=== PATIENT | female | born 1995 ===

== ENCOUNTER 2023-07-05 10:05 | Outpatient (CLI) | payer MEDICAID, SELFPAY ==
--- NOTE | 2023-07-05 10:15 | US_ITS ---
Patient: ALPHONSE COLON Facility:?[facility] Patient ID:?[id number] Site Patient ID:?[id number]. Site :?[id number] Study:?US-OB Pelvis TV OB<14wks-07/05/2023 11:22:34 AM Ordering Physician:Valerie Montaño Final Report: INDICATION: Check viability and dates TECHNIQUE: Transvaginal scanning was performed to better evaluate the IUP and adnexa. Ovarian blood flow was evaluated with color-flow and pulsed Doppler. COMPARISON: None FINDINGS: There is a living IUP with gestational age of 7 weeks 6 days by LMP and 7 weeks 3 days by today`s crown-rump length. EDC based on today`s crown-rump length is 02/18/2024. The embryonic heart rate is measured at 154 beats per minute. The placenta is not yet formed. No subchorionic hemorrhage is evident. A simple right ovarian cyst measuring 5.5 x 5.5 x 5.0 cm is demonstrated. The right ovary measures 6.2 x 5.6 x 5.5 cm and the left 2.5 x 2.4 x 1.6 cm. Ovarian blood flow is demonstrated with color-flow and pulsed Doppler. No adnexal mass is demonstrated. There is a trace of free fluid in the cul-de-sac. IMPRESSION: 1. Living IUP with gestational age of 7 weeks 3 days by today`s crown-rump length and EDC of 02/18/2024. 2. No complication evident. 3. Simple 5.5 cm right ovarian cyst. Dictated by Moises Means MD @ 07/06/2023 8:03:43 AM Signed by:?Moises Means MD @07/06/2023 8:03:43 AM (Electronic Signature)
== END 2023-07-05 10:06 | disposition home or self-care (01) ==
LOC: US 10:05
PROVIDERS: PCP Family Medicine; Visit Provider Advanced Practice Midwife
DX: Z34.91 Encounter for supervision of normal pregnancy, unspecified, first trimester (principal); O34.81 Maternal care for other abnormalities of pelvic organs, first trimester; N83.291 Other ovarian cyst, right side; Z3A.01 Less than 8 weeks gestation of pregnancy
CPT/HCPCS: 76817; 86592; 86703; 86704; 86706; 86762; 86787; 86803; 86850; 86900; 86901; 87086; 87340

== ENCOUNTER 2023-07-05 11:37 | Outpatient (CLI) | payer MEDICAID, SELFPAY | END 2023-07-05 11:38 | disposition home or self-care (01) | PROVIDERS: PCP Family Medicine; Visit Provider Advanced Practice Midwife | DX: Z34.91 Encounter for supervision of normal pregnancy, unspecified, first trimester (principal) | CPT/HCPCS: 86592; 86703; 86704; 86706; 86762; 86787; 86803; 86850; 86900; 86901; 87086; 87340 ==

== ENCOUNTER 2023-07-14 14:16 | Emergency (ER) | payer MEDICAID, SELFPAY ==
[2023-07-14] VITALS (10 sets, daily range): BP systolic 118–121; BP diastolic 67–75; PULSE 79–94; RESP 20; TEMP 36.9; O2SAT 97–100; BMI 39.1
--- NOTE | 2023-07-14 14:41 | ED_ITS ---
HPI - General Adult General Chief complaint: Nausea/Vomiting Stated complaint: 9 weeks -cant stop vomiting Time Seen by Provider: 07/14/23 14:18 History of Present Illness HPI narrative: Patient is a 27-year-old female who is about 9 weeks estimated gestational age . She reports that she has had nausea vomiting and diarrhea. She denies fever, denies COVID symptoms or cough. Denies chest pain. She has had no vaginal bleeding or complaints. She has had morning sickness with this , this seems worse. She has had similar symptoms however with this but not to this degree. She has history of mood disorder, anxiety, depression. She is concerned as she is unable to take fluids fully over last 24 hours or eat well. Related Data Home Medications Medication Instructions Recorded Confirmed docosahexaenoic acid 200 mg mg PO 07/05/23 07/05/23 capsule ( DHA) Allergies Allergy/AdvReac Type Severity Reaction Status Date / Time No Known Drug Allergies Allergy Verified 07/14/23 14:25 Review of Systems Status of ROS: Reports: 6 or more systems reviewed and unremarkable except as noted in History and below PFSH PFS Medical History History of vaginal delivery (10/31/18) History of chlamydia infection (~2014) ?Z86.19 - Personal history of other infectious and parasitic diseases (ICD- 10) Surgical History [place] teeth removed ?K08.409 - Partial loss of teeth, unspecified cause, unspecified class (ICD- 10) Family History Father Substance abuse Diabetes Mother Mental disorder Maternal Grandfather Diabetes Paternal Grandfather Diabetes Grandmother Ovarian cancer Diabetes Sister Diabetes Other High blood pressure Social History Narrative: SOCIAL Education: high school Work: manager language at [employer] Partner: Joey - partner Owns [employer] (his first child) Lives with: daughter, plans to move in together with partner in the near future Pets: none Abuse: Denies past/present Special Diet: Denies Ok with a blood transfusion: yes Culture or temple beliefs: denies RISK FACTORS Exercise Times/wk: encouraged Depression/Anxiety: history of anxiety and depression, not on medications and denies current concerns ANIKET: 3 PHQ 9: 4 Seat Belt Use: Routinely Smoking: Denies present, past vaping Alcohol/day: Denies while Caffeine: occasional soda Drug Use: Denies present, THC occasionally Chicken Pox: immunized MRSA: Denies What is your current living situation?: I presently have a place to live Problems where you live: no known problems In the past 12 months, utilities in danger of being shut off: no In past 12 months, lack of transportation kept you from medical appts, meetings, work, or getting things needed for daily living: no In the past 12 mos, have been you worried that your food would run out before you had money to buy more?: never true In the past 12 mos, the food you bought just didn't last and you didn't have money to buy more?: never true Smoking Status: Never smoker Do you use any of these nicotine containing products: None How often do you have a drink containing alcohol: never AUDIT-C Alcohol total score: 0 Non-prescribed substance use: denies use How often does anyone, including family, friends and others, physically hurt you : never How often does anyone, including family, friends and others, insult or talk down to you: never How often does anyone, including family, friends and others, threaten you with harm: never How often does anyone, including family, friends and others, scream or curse at you: never Little interest or pleasure in doing things: not at all Feeling down, depressed, or hopeless: not at all Exam Narrative: Exam Narrative: Objective: Patient's vital signs are within normal limits She is alert orient x3 no distress, it appears noncyanotic, breathing normally, speaking normally. HEENT is unremarkable Abdomen obese, nontender, no rebound or masses. Extremities normal no edema. Const: Vital Signs, click to edit/add: Vital Signs - 24 hr 07/14/23 14:25 07/14/23 14:38 07/14/23 14:45 Temperature 98.4 F Pulse Rate 86 89 Pulse Rate [Pulse Oximeter] 79 Respiratory Rate 20 Blood Pressure Blood Pressure [Ri ght Upper Arm] 118/75 Pulse Oximetry 98 97 98 Oxygen Delivery Me thod Room Air 07/14/23 15:00 07/14/23 15:01 Temperature Pulse Rate 86 88 Pulse Rate [Pulse Oximeter] Respiratory Rate Blood Pressure 121/70 Blood Pressure [Ri ght Upper Arm] Pulse Oximetry 98 98 Oxygen Delivery Me thod Course Vital Signs Vital signs: Initial Vital Signs Temperature 98.4 F 07/14/23 14:25 Temperature Source Temporal Artery Scan 07/14/23 14:25 Pulse Rate 79 07/14/23 14:25 Respiratory Rate 20 07/14/23 14:25 Blood Pressure 118/75 07/14/23 14:25 Blood Pressure Mean 89 07/14/23 14:25 Blood Pressure Position High-Fowlers 07/14/23 14:25 Pulse Oximetry 98 07/14/23 14:25 Oxygen Delivery Method Room Air 07/14/23 14:25 Vital Signs Temperature 98.4 F 07/14/23 14:25 Pulse Rate 79 07/14/23 14:25 Respiratory Rate 20 07/14/23 14:25 Blood Pressure 118/75 07/14/23 14:25 Pulse Oximetry 98 07/14/23 14:25 Oxygen Delivery Method Room Air 07/14/23 14:25 Temperature 98.4 F 07/14/23 14:25 Pulse Rate 88 07/14/23 15:01 Respiratory Rate 20 07/14/23 14:25 Blood Pressure 121/70 07/14/23 15:01 Pulse Oximetry 98 07/14/23 15:01 Oxygen Delivery Method Room Air 07/14/23 14:25 Medications Administered Medications: Discontinued Medications Generic Name Dose Route Start Last Admin Trade Name Freq PRN Reason Stop Dose Admin Sodium Chloride 1,000 mls @ 6,000 mls/hr 07/14/23 14:45 07/14/23 14:55 0.9 % Sodium Chloride 1000 Ml IV 07/14/23 14:54 2,000 mls/hr .Q10M KAMALA Administration Ondansetron HCl 4 mg 07/14/23 14:40 07/14/23 14:52 Ondansetron 2 Mg/Ml Inj IVP 07/14/23 14:41 4 mg ONCE ONE Administration Medical Decision Making MDM Narrative Medical decision making narrative: 27-year-old female with about 9 weeks estimated gestational age , [facility], with nausea vomiting diarrhea. Certainly could be food toxicity as she was contemplating, certainly could be hyperemesis as well. She appears clinically nontoxic, all check a heme 4 basic 7, give her Zofran 4 mg IV and 1 L normal saline. At that point for labs are reassuring I think we can lower to go home rest light activity light fluid and then update med dixon tomorrow. Patient's labs are reassuring, got fluid and Zofran. She be allowed to go home. Will give her something to eat before she goes. Recheck with her manager exchange tomorrow update your return to ER as needed. Lab Data Labs: Lab Results 07/14/23 Range/Units 14:52 WBC 7.93 (4.50-11.00) K/uL RBC 4.90 (4.00-5.20) m/uL Hgb 14.4 (12.0-16.0) gm/dL Hct 42.4 (33.0-51.0) % MCV 87 (80-100) fL MCH 29 (26-34) pg MCHC 34 (32-36) gm/dL RDW Coeff of Ginger 12.3 (11.5-15.5) % Plt Count 315 (140-440) K/uL Neut % (Auto) 82.9 H (42.0-72.0) % Lymph % (Auto) 10.1 L (20-44) % Wilkinson % (Auto) 4.7 (0.0-11.0) % Eos % (Auto) 1.3 (0.0-7.0) % Baso % (Auto) 0.1 (0.0-3.0) % Neut # (Auto) 6.60 (1.7-7.0) K/uL Lymph # (Auto) 0.80 L (0.90-2.90) K/uL Wilkinson # (Auto) 0.40 (0.00-0.90) K/UL Eos # (Auto) 0.10 (0.00-0.50) K/uL Baso # (Auto) 0.01 (0.00-0.30) K/uL Abs Immat Gran (auto) 0.07 (0.00-0.30) K/uL Imm/Tot Granulo (auto) 0.9 % Sodium 137 (135-149) mmol/L Potassium 3.7 (3.6-5.1) mmol/L Chloride 104 (96-114) mmol/L Carbon Dioxide 24 (20-32) mmol/L Anion Gap 9 (7-15) mEq/L BUN 7 (5-24) mg/dL Creatinine 0.5 (0.5-1.5) mg/dL Estimated Creat Clear 120.32 Estimated GFR 131 ml/min Glucose 92 (60-115) mg/dL Calcium 9.6 (8.4-10.6) mg/dL Discharge Plan Discharge Clinical Impression: Nausea vomiting and diarrhea, Hyperemesis gravidarum, Patient Disposition: Home w/ Parent or Adult Condition: Improved Additional Instructions: Light activity, fluids, bland diet, continue home medications, update midwives tomorrow with symptoms. Return to ED sooner problems or concerns. Activity Level: Light activity Discharge Diet: Full Liquid Diet Detail: Advance diet as tolerated Prescriptions: No Action DHA 200 mg capsule PO Follow Up/Referrals: Lexx Pérez MD [Primary Care Provider] - Stand Alone Forms: [facility] Tech Info Instructions
[2023-07-14] MEDS: ONDANSETRON 2 MG/ML inj 4 MG IVP (14:52)
[2023-07-14] MEDS: 0.9 % SODIUM CHLORIDE 1000 ml 1,000 ML 2000 ML IV (14:55)
[2023-07-14 15:03] LABS: Basophils Absolute Auto 0.01 K/uL (0.00-0.30); Basophils Percent Auto 0.1 % (0.0-3.0); Eosinophils Percent Auto 1.3 % (0.0-7.0); Hematocrit 42.4 % (33.0-51.0); Hemoglobin* 14.4 gm/dL (12.0-16.0); Immature Granulocytes Abs Auto 0.07 K/uL (0.00-0.30); Immature Granulocytes Pct Auto 0.9 %; Lymphocytes Percent Auto 10.1 % (20-44); Mean Corpuscular HGB Conc 34 gm/dL (32-36); Mean Corpuscular Hemoglobin 29 pg (26-34); Mean Corpuscular Volume 87 fL (80-100); Monocytes Percent Auto 4.7 % (0.0-11.0); Neutrophils Percent Auto 82.9 % (42.0-72.0); Platelet Count* 315 K/uL (140-440); RDW Coefficient of Variation % 12.3 % (11.5-15.5); White Blood Count* 7.93 K/uL (4.50-11.00)
[2023-07-14 15:12] LABS: Slide Review Reflex No
[2023-07-14 15:15] LABS: Chloride* 104 mmol/L (96-114); Potassium* 3.7 mmol/L (3.6-5.1); Sodium* 137 mmol/L (135-149)
[2023-07-14 15:18] LABS: Anion Gap 9 mEq/L (7-15); Blood Urea Nitrogen* 7 mg/dL (5-24); Calcium* 9.6 mg/dL (8.4-10.6); Carbon Dioxide* 24 mmol/L (20-32); Creatinine* 0.5 mg/dL (0.5-1.5); Est. Creatinine Clearance* 120.32; Estimated Glomerular Filt Rate 131 ml/min; Glucose* 92 mg/dL (60-115)
== END 2023-07-14 15:50 | disposition home or self-care (01) ==
PROVIDERS: Emergency Provider Family Medicine; PCP Family Medicine
DX: O21.0 Mild hyperemesis gravidarum (principal); Z3A.09 9 weeks gestation of pregnancy
CPT/HCPCS: 36415; 80048; 85025; 96374; 99283; 99284; J2405; J7030

== ENCOUNTER 2023-08-02 10:31 | Outpatient (CLI) | payer MEDICAID, SELFPAY | END 2023-08-02 10:32 | disposition home or self-care (01) | LOC: NFLDREF 10:32 | PROVIDERS: PCP Family Medicine; Visit Provider Advanced Practice Midwife | DX: F12.10 Cannabis abuse, uncomplicated (principal) | CPT/HCPCS: 80306 ==

== ENCOUNTER 2023-09-27 11:53 | Outpatient (CLI) | payer MEDICAID, SELFPAY ==
--- NOTE | 2023-09-27 12:15 | CRLHL7_ITS ---
For Patients: As a result of the 21st Century Cures Act, medical imaging exams and procedure reports are released immediately into your electronic medical record. You may view this report before your referring provider. If you have questions, please contact your health care provider. OB ULTRASOUND CLINICAL HISTORY: anatomy survey. COMPARISON: 07/05/2023. MATA by LMP: 02/15/2024. GA: 19 w, 6 d. FINDINGS: position: Variable. Cervix: Visualized. Technique: Transabdominal. Length of closed cervix: 3.6 cm. Placenta/cord: Posterior. Technique: Transabdominal. Placenta tip to internal OS: 4.9 cm. Umbilical Cord: 3-vessel cord. Placenta insertion: Central. Amniotic Fluid: 3.2 cm SDP SURVEY: Observed Structures Cerebellum: Yes. 2 cm; 20 w 2 d. Cisterna Magna: Yes. 2.5 mm. Nuchal Fold: Yes. 3.1 mm. Lateral Ventricle: Yes. 6.1 mm. CSP: Yes. Midline Falx: Yes. Choroid Plexus: Yes. Spine: Yes. Stomach: Yes. Abd Cord Insertion: Yes. Urinary Bladder: Yes. Kidneys: Yes. Diaphragm: Yes. Nose/lips: Yes. Orbital view: Yes. Profile: Yes. Upper Extremities: Yes. Lower Extremities: Yes. Hands: Yes. Feet: Yes. BPD: 3.9 cm. 17 w 6 d, <3%. HC: 16.2 cm. 19 w 0 d, 10%. AC: 14.7 cm. 20 w 0 d, 49%. FL: 3.2 cm. 19 w 6 d, 44%. FL/AC: 21.63%. HC/AC Ratio: 1.10. Heart rate: 150 beats per minute. age by this US: 19 w 3 d. MATA by this US: 02/18/2024. EFW: 312 g. Weight: 11 oz. Percentile by MATA: 40%. IMPRESSION: 1. Estimated weight is at the 40th percentile. 2. BPD less than 3rd percentile, head circumference 10th percentile. 3. Four chamber heart and outflow tracts were not well seen due to positioning. Recommend follow-up images. 4. Otherwise, normal anatomic survey. 5. Right ovarian cyst has resolved. Stefano Rasmussen M.D. Body/Diagnostic Radiologist [email or web address] CRISTIANE/elvis leal/Dictated by: Stefano Rasmussen MD @ 09/28/2023 3:35:00 PM (Electronically Signed)
== END 2023-09-27 11:54 | disposition home or self-care (01) ==
LOC: US 11:55
PROVIDERS: Visit Provider Advanced Practice Midwife
DX: Z36.89 Encounter for other specified antenatal screening (principal); Z34.82 Encounter for supervision of other normal pregnancy, second trimester; Z3A.19 19 weeks gestation of pregnancy
CPT/HCPCS: 76805

== ENCOUNTER 2023-11-22 13:57 | Outpatient (CLI) | payer MEDICAID, SELFPAY | END 2023-11-22 13:58 | disposition home or self-care (01) | LOC: NFLDREF 13:59 | PROVIDERS: Visit Provider Midwife | DX: Z36.89 Encounter for other specified antenatal screening (principal); O99.212 Obesity complicating pregnancy, second trimester; Z3A.27 27 weeks gestation of pregnancy; O99.342 Other mental disorders complicating pregnancy, second trimester; F41.9 Anxiety disorder, unspecified; F32.A Depression, unspecified; R73.9 Hyperglycemia, unspecified | CPT/HCPCS: 86592 ==

== ENCOUNTER 2023-11-23 07:54 | Outpatient (CLI) | payer MEDICAID, SELFPAY | END 2023-11-23 07:55 | disposition home or self-care (01) | LOC: NFLDREF 11-29 00:15 | PROVIDERS: Visit Provider Midwife | DX: Z36.89 Encounter for other specified antenatal screening (principal); O99.212 Obesity complicating pregnancy, second trimester; O99.810 Abnormal glucose complicating pregnancy; R73.9 Hyperglycemia, unspecified; Z3A.27 27 weeks gestation of pregnancy | CPT/HCPCS: 82951; 82952 ==

== ENCOUNTER 2023-12-20 08:55 | Outpatient (CLI) | payer MEDICAID, SELFPAY ==
--- NOTE | 2023-12-20 09:15 | CRLHL7_ITS ---
For Patients: As a result of the Century Cures Act, medical imaging exams and procedure reports are released immediately into your electronic medical record. You may view this report before your referring provider. If you have questions, please contact your health care provider. INDICATION: Growth for obesity COMPARISON: 09/27/2023 TECHNIQUE: Real time herndon scale imaging of the fetus was performed. FINDINGS: Sonographic imaging demonstrates a single living intrauterine gestation. Fetus demonstrates a regular cardiac rate of 149 beats per minute. Fetus has a vertex position. The placenta lies posteriorly. Amniotic fluid volume appears normal and there is a single deepest vertical pocket: 5.8 cm. The estimated weight is 1615gm which lies at the 10th %. On the prior OB ultrasound exam dated 09/27/2023 the estimated weight was at the 40th%. BPD 8th percentile. HC 18th percentile. AC 19th percentile. FL is 5th percentile. The HC/AC ratio measures 1.09 range (0.96-1.17). IMPRESSION: Sonographic gestational age 30 weeks 6 days and sonographic due date of 02/22/2024. Sonographic age 1 week behind the clinical age. Estimated weight 10th percentile. Abdominal circumference 19th percentile. FL 5th percentile. Dictated by Kristian Moya MD @ 12/20/2023 12:20:19 PM (Electronically Signed)
== END 2023-12-20 08:56 | disposition home or self-care (01) ==
LOC: US 08:57
PROVIDERS: Visit Provider Midwife
DX: O99.210 Obesity complicating pregnancy, unspecified trimester (principal); Z3A.30 30 weeks gestation of pregnancy
CPT/HCPCS: 76816

== ENCOUNTER 2023-12-29 14:50 | Outpatient (CLI) | payer MEDICAID, SELFPAY ==
[2023-12-29] VITALS (13 sets, daily range): BP systolic 114; BP diastolic 57; PULSE 71–86; O2SAT 97–99
[2023-12-29 15:41] LABS: Bilirubin Urine Negative (Negative); Blood Urine Negative (Negative); Color Urine Yellow (Yellow); Glucose Urine Negative (Negative); Ketones Urine Negative (Negative); Leukocyte Esterase Urine Negative (Negative); Nitrite Urine Negative (Negative); Protein Urine Negative (Negative); Specific Gravity Urine >= 1.030 (1.000-1.030); Urobilinogen Urine 0.2 (0.2-1.0)
[2023-12-29 15:47] LABS: Appearance Urine Slightly Cloudy (Clear)
[2023-12-29 15:48] LABS: Amorphous Sediment Urine Few; Bacteria Urine Moderate; RBC Urine 0-2 (0-2); Squamous Epithelial Cell Urine Moderate (None-Few); WBC Urine 0-2 (0-5)
[2023-12-29 15:49] LABS: Clue Cells No Clue Cells Seen (None Seen); Trichomonas No Trichomonas Seen (None Seen); Yeast No Yeast Seen (None Seen)
--- NOTE | 2023-12-29 17:34 | PC.OBNST ---
NST Note NST Note Start: 12/29/23 15:01 Freq: ONCE Status: Active Protocol: Document 12/29/23 17:16 JG (Rec: 12/29/23 17:22 JRAziza [id number]) NST Note 2 Para (# of births) 1 EDC 02/15/24 Gestational Age In Weeks & Days 33 Weeks & 1 Days Patient Presented with Complaint(s) of Contractions/cramping Reactive Yes Appropriate for Gestational Age Yes RN Gloria Limon RN Date 12/29/23 Reactive Yes Appropriate for Gestational Age Yes SHANNAN De Santiago RN Date 12/29/23 OB NST charge Yes Complete NST Note via Write Note Yes The provider's electronic signature indicates the NST is reactive/appropriate for gestational age. *Note to provider: If an addendum is required, open the patient's chart and click on the note under the Nurse/Allied Health tab.
== END 2023-12-29 16:53 | disposition home or self-care (01) ==
LOC: OB OUT 14:52 → OB 14:55
PROVIDERS: Visit Provider Obstetrics & Gynecology
DX: O47.03 False labor before 37 completed weeks of gestation, third trimester (principal); Z3A.33 33 weeks gestation of pregnancy
CPT/HCPCS: 59025; 81001; 81003; 87086; 87210; G0463

== ENCOUNTER 2024-01-17 09:09 | Outpatient (CLI) | payer MEDICAID, SELFPAY ==
--- NOTE | 2024-01-17 09:15 | CRLHL7_ITS ---
For Patients: As a result of the Century Cures Act, medical imaging exams and procedure reports are released immediately into your electronic medical record. You may view this report before your referring provider. If you have questions, please contact your health care provider. HISTORY: anatomic survey. COMPARISON: Ob ultrasound from 10/05/2023 TECHNIQUE: Ultrasound examination of the is performed with transabdominal technique. FINDINGS: A single intrauterine gestation is seen in cephalic presentation with regular cardiac activity at 157 beats per minute. The placenta is posterior and is free of the cervical os. The placental grade is 2 and the amniotic fluid volume is normal. Single deepest vertical pocket: 5.2 cm. BPD: 8.3 cm 33 weeks 3 days HC: 30.5 cm 34 weeks 0 days, less than the 3rd percentile AC: 31.0 cm 35 weeks 0 days. Thirty-third percentile FL: 6.5 cm 33 weeks 3 days, 3rd percentile The estimated age by ultrasound is 34 weeks 0 days, with an estimated date of delivery of 02/18/2024. This represents progressive decreased rate of growth compared to the clinical age of 35 weeks 6 days. The discrepancy of 1 weeks 6 days is increased compared to the reported one-week discrepancy on the previous ultrasound. However, there has been appropriate interval growth compared with the previous ultrasound. The ultrasound ratios are normal. The estimated weight of 2400 grams is at the 14th percentile based on the clinical dates. IMPRESSION: 1. Single intrauterine gestation in cephalic presentation with regular cardiac activity. 2. Estimated gestational age is 34 weeks 0 days. 3. There has been appropriate interval growth compared to the previous OB ultrasound. 4. Estimated weight of 2400 grams is at the 14th percentile based on the clinical dates, previously 10th percentile. 5. Head circumference less than the 3rd percentile. Dictated by Xavier Kenney MD @ 01/17/2024 12:08:28 PM (Electronically Signed)
== END 2024-01-17 09:10 | disposition home or self-care (01) ==
LOC: US 09:09
PROVIDERS: Visit Provider Advanced Practice Midwife
DX: Z34.93 Encounter for supervision of normal pregnancy, unspecified, third trimester (principal); Z3A.33 33 weeks gestation of pregnancy
CPT/HCPCS: 76816; 80306; 87081; 87653

== ENCOUNTER 2024-01-24 15:16 | Outpatient (CLI) | payer MEDICAID, SELFPAY ==
[2024-01-24] VITALS (7 sets, daily range): BP systolic 124; BP diastolic 68; PULSE 79–91; RESP 16; TEMP 36.5; O2SAT 96–98
--- NOTE | 2024-01-24 15:52 | CRLHL7_ITS ---
For Patients: As a result of the Cures Act, medical imaging exams and procedure reports are released immediately into your electronic medical record. You may view this report before your referring provider. If you have questions, please contact your health care provider. Indication: Non-reactive NST ESTIMATED DATE OF DELIVERY (MATA): 02/15/2024. Technique: Real-time sonographic images of the pelvis were obtained transabdominally using grayscale, color, and Doppler imaging. Comparison: 01/17/2024. Findings: Placenta: Posterior. No previa. : Number: Single. Position: Cephalic. Cardiac activity: 155 BPM. Amniotic fluid: Single deepest pocket measuring 4.6 cm. GROWTH PARAMETER SIZE (cm) ESTIMATED AGE Biparietal diameter: 8.6 34 weeks 4 days Head circumference: 32.1 36 weeks 1 day Abdominal circumference: 31.9 35 weeks 6 days Femur length: 6.6 33 weeks 6 days Average Ultrasound Age (AUA) based on this exam: 35 weeks 1 day. MATA based on the AUA from this exam: 02/27/2024. Estimated weight (EFW): 2619 gm +/-393 gm. This corresponds to the 16 percentile based on the established MATA. HC/AC= 1.0 FL/AC= 20.6% Biophysical profile: Breathin/2 Movement: 2/2 Tone: 2/2 Fluid volume: 2/2 Total: 10/20 Impression: 1. Single live intrauterine measuring 35 weeks 1 day by ultrasound. 2. Amniotic fluid single deepest pocket measuring 4.6 centimeter. 3. BPP 10/20. Dictated by Chi Oneal MD @ 01/24/2024 5:58:20 PM (Electronically Signed)
--- NOTE | 2024-01-24 16:24 | P.OBLDTN_ITS ---
OB - Triage/Final Diagnosis Visit Information Narrative: The patient is a 28 year old 2 para 1 at 36 6/7 weeks gestation by LMP, who presents with confirmed by first tri US. She was seen in clinic for routine surveillance for elevated BMI. NST was equivocal with only 10 x10 bpm accelerations. Only one 15x15 accel over 1.5 hours despite position changes, juice. Sent to Triage for surveillance and BPP. H&P completed 01/24/2024 by Teri KELLER # GBS+ # Occasional THC use. Aware she needs negative UDS for waterbirth. THC positive at 12 weeks 2nd tri-declined due to scheduling with child 3rd tri- needs for waterbirth- negative 01/16 # Hx anxiety and depression. Denies current concerns. # Obesity. BMI 39.3 at NOB. Early gct: declines [facility] recommends growth US at 32 weeks: EFW 10.4%ile, AC 19%ile, follow-up growth US in 4 weeks ordered Follow up EFW 13%, Consider weekly BPP/NST starting at 37 weeks, planning weekly NST, Growth and BPP at 39 weeks # BPD <3%ile, RESOLVED HC 10%ile, [facility] referral placed Inadequate cardiac views also [facility] 10/05/2023: BPD not of concern, no abnormal findings on US. Recommend growth US at 32 weeks and weekly testing starting at 37 weeks based on BMI # EFW 10.4%ile follow-up growth in 4 weeks (36 weeks) EFW 13.5% at 36 wks follow up Growth at 39 weeks with BPP needs pap PP. COVID: declined Flu: declined TDAP: 12/06/2023 RSV: 32 wk Mental Health 12/20/2023 ASSESSMENT:?? 28 at 36 6/7 weeks gestation?? complicated by:??obesity, anxiety and depression, equivocal surveillance NST equivocal, BPP 10/20 ?? PLAN:?? 1.Reviewed signs and symtpoms to report. 2. to call in the morning to schedule NST and visit for Wednesday this week 3. Pt agrees with plan and has no further questions at this time Evaluation Vital signs: Vital Signs - 24 hr 01/24/24 15:27 01/24/24 15:32 01/24/24 15:36 Temperature Pulse Rate 88 Respiratory Rate Blood Pressure 124/68 Pulse Oximetry 98 98 01/24/24 15:37 01/24/24 15:37 01/24/24 15:42 Temperature 97.7 F Pulse Rate Respiratory Rate 16 Blood Pressure Pulse Oximetry 96 97 01/24/24 15:47 Temperature Pulse Rate Respiratory Rate Blood Pressure Pulse Oximetry 97 Comments: Vitals Reviewed Constitutional:? Alert and oriented x3 HEENT:? Normocephalic, atraumatic Neck:? Supple Lungs:? Clear to auscultation bilaterally Heart:? Regular rate and rhythm, no murmur, rub or gallop Abdomen:? Soft, nontender, and gravid. Vertex by Ankit's Extremities:? No edema or erythema BPP 10/20 NST: 145 bpm/moderate variability with periods of decreased/accelerations not present/decelerations absent/irreg, rare contractions Final Diagnosis (1) : Status: Acute (2) Obesity (BMI 30-39.9): Status: Acute (3) Anxiety: Status: Chronic (4) Depression: Status: Chronic (5) Abnormal heart rate or rhythm (FHR): Status: Acute Problem details: equivocal NST 01/24/24
--- NOTE | 2024-01-24 17:25 | PC.OBNST ---
NST Note NST Note Start: 01/24/24 15:19 Freq: ONCE Status: Active Protocol: Document 01/24/24 15:19 [facility] (Rec: 01/24/24 17:24 [facility] Desktop) NST Note 2 Para (# of births) 1 EDC 02/15/24 Gestational Age In Weeks & Days 36 Weeks & 6 Days Patient Presented with Complaint(s) of Other Other Complaints non reactive FHR tracing in clinic Reactive Yes Appropriate for Gestational Age Yes SHANNAN Rutherford RN Date 01/24/24 Reactive Yes Appropriate for Gestational Age Yes SHANNAN Bravo CNM Date 01/24/24 OB NST charge Yes Complete NST Note via Write Note Yes The provider's electronic signature indicates the NST is reactive/appropriate for gestational age. *Note to provider: If an addendum is required, open the patient's chart and click on the note under the Nurse/Allied Health tab.
== END 2024-01-24 17:17 | disposition home or self-care (01) ==
LOC: OB OUT 15:17 → OB 15:18
PROVIDERS: Visit Provider Midwife
DX: Z34.93 Encounter for supervision of normal pregnancy, unspecified, third trimester (principal); Z3A.36 36 weeks gestation of pregnancy; R73.9 Hyperglycemia, unspecified
CPT/HCPCS: 59025; 76816; 76819; G0463

== ENCOUNTER 2024-01-28 11:17 | Inpatient (IN) | payer MEDICAID, SELFPAY ==
[2024-01-28] VITALS (8 sets, daily range): BP systolic 103–121; BP diastolic 57–65; PULSE 75–93; RESP 16; TEMP 36.4–36.7; O2SAT 97–98; BMI 37.4
--- NOTE | 2024-01-28 10:06 | CRLHL7_ITS ---
For Patients: As a result of the Cures Act, medical imaging exams and procedure reports are released immediately into your electronic medical record. You may view this report before your referring provider. If you have questions, please contact your health care provider. Indication: non reactive NST MATA: 02/15/2024. Technique: Real-time sonographic images of the pelvis were obtained transabdominally using grayscale, color, and Doppler imaging. Comparison: 01/24/2024. Findings: A single intrauterine is present in cephalic position. Cardiac activity in the fetus is demonstrated at 137 BPM. Placenta: Posterior. No previa or abruption. Amniotic Fluid: Single deepest pocket measures 3.8 centimeter. Biophysical profile: Breathin/2 Movement: 2/2 Tone: 2/2 Fluid volume: 2/2 Total: 10/20 Impression: 1. Single living intrauterine gestation in cephalic presentation, with heartrate 137 BPM. 2. Posterior placenta without previa or abruption. 3. Amniotic fluid with single deepest pocket measuring 3.8 centimeter. 4. BPP 10/20. Dictated by Chi Oneal MD @ 01/28/2024 11:14:36 AM (Electronically Signed)
--- NOTE | 2024-01-28 10:49 | P.OBHP_ITS ---
OB - H&P: HPI Labor/Induction History of Present Illness Date Seen: 01/28/24 Chief Complaint: Stephanie is a 36 year old 2 para 1 at 37.3 weeks gestation by LMP, who presents with non-reassuring tracing in clinic. Chief complaint: maternity Narrative: Stephanie Miller is a 28 year old female at 37 3/7 weeks gestation. She was seen in clinic today for NST for BMI. It was non-reactive but we were not able to get her for an Ultrasound until mid morning. She was sent here for extended monitoring. Initially, the tracing was non-reactive, recommended BPP to decided route of delivery but will proceed with IOL today. BPP was 8/8, with a final score of 8/10. She had a previous non-reactive tracing on Wednesday with a BPP of 8/8 at that time as well. Discussed findings with Dr. Espinoza who agrees with recommendation of IOL. Patients has been complicated pre- BMI of 39, occasional THC use, and hx of anxiety/depression. Recommended testing was performed based on [facility] recommendation of Growth US at 32 weeks where EFW was 10.4%ile, previously 40%ile on 20 week anatomy followed by [facility] EFW of 20% with Level II for follow-up on cardiac views not seen on anatomy scan. She was then recommended to have a 36 week growth to trend EFW due to significant change. The EFW at 36 weeks was 14%ile. She started testing at 36 5/7 weeks due to scheduling, on 01/23. Her NST at this time was non-reactive after 40 minute in clinic. She was then sent for additional monitoring as they were not able to get her in for a BPP right away. BPP was performed while she was in triage with a score of 8/10. She was discharged home with plan to return today for NST in clinic. Ultrasound: 1st Trimester US: 07/05/2023 IMPRESSION: 1. Living IUP with gestational age of 7 weeks 3 days by today`s crown-rump length and EDC of 02/18/2024. 2. No complication evident. 3. Simple 5.5 cm right ovarian cyst. Dictated by Moises Means MD @ 07/06/2023 8:03:43 AM Anatomy US: 09/23/2023 IMPRESSION: 1. Estimated weight is at the 40th percentile. 2. BPD less than 3rd percentile, head circumference 10th percentile. 3. Four chamber heart and outflow tracts were not well seen due to positioning. Recommend follow-up images. 4. Otherwise, normal anatomic survey. 5. Right ovarian cyst has resolved. Percentile by MATA: 40%. Stefano Rasmussen M.D. [facility] 10/05/2023? Follow-up for incomplete anatomy with BPD <3% on outside US.? SIUP at 21 weeks gestation. No anomalies identified. EFW consistent with gestational age, 20%ile. Normal amniotic fluid. Cervix appeared long and closed. Based on pre- BMI of 39, recommended growth at 32 weeks and weekly testing starting at 37 weeks.? Follow-up US: 12/20/2023?32 week Growth US IMPRESSION:? Sonographic gestational age 30 weeks 6 days and sonographic due date of 02/22/2024. Sonographic age 1 week behind the clinical age.? Estimated weight 10th percentile. Abdominal circumference 19th percentile. FL 5th percentile.? Dictated by Kristian Moya MD @ 12/20/2023 12:20:19 PM? ? 01/17/2024?36 week Growth US IMPRESSION:? 1. Single intrauterine gestation in cephalic presentation with regular ? cardiac activity. ? 2. Estimated gestational age is 34 weeks 0 days.? 3. There has been appropriate interval growth compared to the previous OB ultrasound. ? 4. Estimated weight of 2400 grams is at the 14th percentile based on the clinical dates, previously 10th percentile. ? 5. Head circumference less than the 3rd percentile.? Dictated by Xavier Kenney MD @ 01/17/2024 12:08:28 PM? ? 01/23 Non-reactive NST in clinic? IMPRESSION:? 1. Single live intrauterine measuring 35 weeks 1 day by ? ultrasound.? 2. Amniotic fluid single deepest pocket measuring 4.6 centimeter. ? 3. BPP 10/20.? Dictated by Chi Oneal MD @ 01/24/2024 5:58:20 PM? Specific Issues/Plans Partner- Joey (his 1st child) H&P completed 01/24/2024 by Teri KELLER # GBS+, antibiotics recommended in labor # Occasional THC use. Aware she needs negative UDS for waterbirth. THC positive at 12 weeks 2nd tri-declined due to scheduling with child 3rd tri- needs for waterbirth- negative 01/16 # Hx anxiety and depression. Denies current concerns. # Obesity. BMI 39.3 at NOB. Early gct: declines [facility] recommends growth US at 32 weeks: EFW 10.4%ile, AC 19%ile, follow-up growth US in 4 weeks ordered 36 week growth: EFW 14% 37 week growth: Incidently done with BPP, 16% Consider weekly BPP/NST starting at 37 weeks, planning weekly NST, Growth and BPP at 39 weeks # BPD <3%ile, RESOLVED HC 10%ile, [facility] referral placed Inadequate cardiac views also [facility] 10/05/2023: BPD not of concern, no abnormal findings on US. Recommend growth US at 32 weeks and weekly testing starting at 37 weeks based on BMI # EFW 10.4%ile at 32 weeks follow-up growth in 4 weeks (36 weeks): 14 Ultrasounds: 1st Trimester US: 07/05/2023 IMPRESSION: 1. Living IUP with gestational age of 7 weeks 3 days by today`s crown-rump length and EDC of 02/18/2024. 2. No complication evident. 3. Simple 5.5 cm right ovarian cyst. Dictated by Moises Means MD @ 07/06/2023 8:03:43 AM Anatomy US: 09/23/2023 IMPRESSION: 1. Estimated weight is at the 40th percentile. 2. BPD less than 3rd percentile, head circumference 10th percentile. 3. Four chamber heart and outflow tracts were not well seen due to positioning. Recommend follow-up images. 4. Otherwise, normal anatomic survey. 5. Right ovarian cyst has resolved. Percentile by MATA: 40%. Stefano Rasmussen M.D. [facility] 10/05/2023? Follow-up for incomplete anatomy with BPD <3% on outside US.? SIUP at 21 weeks gestation. No anomalies identified. EFW consistent with gestational age, 20%ile. Normal amniotic fluid. Cervix appeared long and closed. Based on pre- BMI of 39, recommended growth at 32 weeks and weekly testing starting at 37 weeks.? Follow-up US: 12/20/2023?32 week Growth US IMPRESSION:? Sonographic gestational age 30 weeks 6 days and sonographic due date of 02/22/2024. Sonographic age 1 week behind the clinical age.? Estimated weight 10th percentile. Abdominal circumference 19th percentile. FL 5th percentile.? Dictated by Kristian Moya MD @ 12/20/2023 12:20:19 PM? ? 01/17/2024?36 week Growth US IMPRESSION:? 1. Single intrauterine gestation in cephalic presentation with regular cardiac activity. ? 2. Estimated gestational age is 34 weeks 0 days.? 3. There has been appropriate interval growth compared to the previous OB ultrasound. ? 4. Estimated weight of 2400 grams is at the 14th percentile based on the clinical dates, previously 10th percentile. ? 5. Head circumference less than the 3rd percentile.? Dictated by Xavier Kenney MD @ 01/17/2024 12:08:28 PM? ? 01/23 Non-reactive NST in clinic? IMPRESSION:? 1. Single live intrauterine measuring 35 weeks 1 day by ? ultrasound.? 2. Amniotic fluid single deepest pocket measuring 4.6 centimeter. ? 3. BPP 10/20.? Dictated by Chi Oneal MD @ 01/24/2024 5:58:20 PM? needs pap PP. COVID: declined Flu: declined TDAP: 12/06/2023 RSV: declines 32 wk Mental Health 12/20/2023 PHQ-9: ANIKET-7: History of Present Dating criteria: based on LMP care: good care Review of Systems Status of ROS: Reports: 10 or more systems reviewed and unremarkable except as noted in History and below Meds Home Medications and Allergies Home Medications ?Medication ?Instructions ?Recorded ?Confirmed ?Type ascorbic acid (vitamin C) 500 mg 500 mg PO DAILY 08/02/23 01/28/24 History capsule Allergies Allergy/AdvReac Type Severity Reaction Status Date / Time No Known Drug Allergies Allergy Verified 01/28/24 08:32 OB - H&P: Exam Physical Exam: Vital signs: Pulse BP Pulse Ox 88 103/63 98 01/28/24 10:21 01/28/24 10:21 01/28/24 10:22 Narrative: Vitals Reviewed Constitutional:? Alert and oriented x3 HEENT:? Normocephalic, atraumatic Neck:? Supple Lungs:? Clear to auscultation bilaterally Heart:? Regular rate and rhythm, no murmur, rub or gallop Abdomen:? Soft, nontender, and gravid. Vertex by Ankit's, confirmed with cervical exam. Extremities:? No edema or erythema Cervix: 0.5 cm/-2 station/vertex, soft/anterior NST: 155 bpm/moderate variability, periods of minimal/10x10 accelerations/no decelerations/no notable contractions Constitutional: Constitutional: no acute distress OB - Problem Based A/P Additional Plan (1) Group B Streptococcus carrier, antepartum: Status: Acute (2) Abnormal heart rate or rhythm (FHR): Status: Acute (3) Encounter for induction of labor: Status: Acute (4) Mild tetrahydrocannabinol (THC) abuse: Problem details: occasional use, pt reports not using since before 12 wk visit Negative UDS at 36 weeks Status: Acute (5) Mood disorder: Problem details: Mood lability diagnosed at [facility] 2016. Status: Chronic (6) Anxiety: Status: Chronic (7) Depression: Status: Chronic Plan ASSESSMENT:? 28yo at 37 2/7 weeks gestation? complicated by:?Occasional THC use, Hx anxiety and depression. Denies current concerns, Obesity. prepregnancy BMI 39.3, EFW 10.4%ile at 32 weeks, most recent EFW 16% Labor type: Induced labor? Category 1 FHR pattern.?? Labor complicated by: Non-reactive NST with BPP 10/20 for total of 10/22? GBS Positive? ? PLAN:? 1. Routine intrapartum cares as ordered. Discussed concerns with status and reassurance provided by BPP. Recommended IOL which she agrees. Reviewed options for IOL including cervidil, cook catheter, pitocin and AROM. Her cervix is closed, best option at this time is cervidil. She agrees with plan. She is not interested in a cook catheter if she can avoid it. She would be open to pitocin and AROM if needed. 2. Monitoring per policy, continuous? 3. Planning unmedicated . Desires water . Consent signed. Hep C negative. Candidate for analgesia of choice.?? 4. Patient encouraged to reposition and ambulate to promote physiologic labor and .? 5. GBS prophylaxis initiated for GBS positive status. Will treat with antibiotics per protocol. 6. Dr. Espinoza is aware of patient and agrees with plan. 7. Anticipate ? Delivery/Labor/Induction Plan Plan: induction Induction method: Cervidil
[2024-01-28 12:32] LABS: Amphetamine Screen Urine Negative (Negative); Barbiturate Screen Urine Negative (Negative); Benzodiazepines Screen Urine Negative (Negative); Cannabinoid Screen Urine Negative (Negative); Cocaine Screen Urine Negative (Negative); Methadone Screen Urine Negative (Negative); Methamphetamines Screen Urine Negative (Negative); Opiate Screen Urine Negative (Negative); Oxycodone Screen Urine Negative (Negative); Phencyclidine Screen Urine Negative (Negative); Tricyclic Antidepressant Urine Negative (Negative)
[2024-01-28 13:26] LABS: Basophils Absolute Auto 0.03 K/uL (0.00-0.30); Basophils Percent Auto 0.4 % (0.0-3.0); Eosinophils Absolute Auto 0.08 K/uL (0.00-0.50); Eosinophils Percent Auto 1.1 % (0.0-7.0); Hemoglobin* 12.6 gm/dL (12.0-16.0); Immature Granulocytes Abs Auto 0.01 K/uL (0.00-0.30); Immature Granulocytes Pct Auto 0.1 %; Lymphocytes Absolute Auto 1.71 K/uL (0.90-2.90); Lymphocytes Percent Auto 24.2 % (20-44); Mean Corpuscular HGB Conc 33 gm/dL (32-36); Mean Corpuscular Hemoglobin 28 pg (26-34); Mean Corpuscular Volume 84 fL (80-100); Monocytes Percent Auto 7.1 % (0.0-11.0); Neutrophils Absolute Auto 4.75 K/uL (1.7-7.0); Neutrophils Percent Auto 67.1 % (42.0-72.0); Platelet Count* 208 K/uL (140-440); RDW Coefficient of Variation % 13.3 % (11.5-15.5); Red Blood Count 4.54 m/uL (4.00-5.20); White Blood Count* 7.08 K/uL (4.50-11.00)
[2024-01-28 14:11] LABS: Slide Review Reflex No
[2024-01-28] MEDS: DINOPROSTONE 10 MG VAGINAL INSERT VAGINAL (14:16)
--- NOTE | 2024-01-28 15:44 | PC.SOCIAL ---
Social work consult: bag shop worker received a referral on the pt for substance abuse screening. Pt tested positive for THC in July of 2023, but tested negative on 01/17/2024 and today at admission to the hospital. bag shop worker consulted with the CPS bag shop worker Amparo at [facility] Physician Relations Manager #[phone](pt lives in [facility] is [facility]), and she stated that a report does not need to be made, at this time, due to the mother testing negative today at time of admission and there not being a baby yet; however, she shared that if the cord blood test came back positive for anything to call back with a report. bag shop worker informed the nurses at [facility] of this update. Social work to follow-up as needed.
[2024-01-28] MEDS: ACETAMINOPHEN 500 MG TABLET 1000 MG PO (17:15)
[2024-01-29] VITALS (13 sets, daily range): BP systolic 97–111; BP diastolic 52–60; PULSE 72–92; RESP 18; TEMP 36.3–36.9; O2SAT 97
[2024-01-29] MEDS: AMPICILLIN 2 GM in 0.9 % SODIUM CHLORIDE Mini-bag 100 ML IVPB (02:54)
[2024-01-29] MEDS: LACTATED RINGERS 1000 ML 1,000 ML 30 ML IV (02:55)
[2024-01-29] MEDS: OXYTOCIN 30 unit/500 ML in NS 30 UNIT/500 ML BAG IVPB (02:58)
[2024-01-29] MEDS: AMPICILLIN 1 GM in 0.9 % SODIUM CHLORIDE Mini-bag 100 ML IVPB ×5 (06:48→22:38)
--- NOTE | 2024-01-29 07:08 | P.OBPN_ITS ---
Subjective Date Seen: 01/29/24 Narrative: Angela is a at 37w4d today here for IOL for non-reactive surveillance. She received cervidil durin the night that was removed after 12 hours at 0215 this morning. She is declining a cook catheter and has been on pitocin since. She has been feeling the contractions moderately well though they are difficult to trace at times. She is coping well, but considering an epidural at some point. Cytotec was not felt to be a good option due to the inability to remove it if the baby becomes stressed. The baby's tracing has been category I through the night. GBS +, treated adequately and ongoing. Partner and mother supportive at bedside. Objective Exam: Objective: Constitutional: Alert and oriented x3, no distress, coping well Vital signs stable, see nurse documentation Abdomen: gravid, contractions palpate mild with contractions and soft between Cervix: 1/50/-2/anterior/firm NST: 140 bpm/moderate variability/accelerations present/decelerations absent/contractions q 2-56 min x 50-70 sec Vital Signs: Last Vital Signs Temp 97.8 F 01/29/24 03:03 Pulse 89 01/29/24 03:03 Resp 16 01/28/24 15:15 BP 102/59 L 01/29/24 03:03 Pulse Ox 97 01/29/24 03:03 Contractions Monitor mode: Palpation Contraction pattern: Irregular Contraction intensity: Mild Assessment Assessment: induction ongoing Status: Category l Plan Plan: ASSESSMENT:?? 28 at 37w4d weeks gestation?? complicated by:?elevated BMI, surveillance prenatally non- reactive? Labor type: Induced labor?, not yet active or ripe Category 1 FHR pattern.??? Labor complicated by: IOL, GBS+, adequately treated? PLAN:?? 1. Routine intrapartum cares as ordered. Continue with IOL, but options reviewed and ripening is likely needed. Not yet safe for ROM, per patient desire. Reviewed inability to remove cytotec once taken and potential for stress. She would like to go aghead with cytotec until able to rupture as long as needed and baby tolerates it. 2. Monitoring per policy, continuous? 3. Planning unmedicated . Desires water . Consent signed. Hep C negati ve. Candidate for analgesia of choice.??? 4. Patient encouraged to reposition and ambulate to promote physiologic labor and .?? 5. GBS prophylaxis to be continued 6. Anticipate ?
[2024-01-29] MEDS: miSOPROStoL 25 MCG/0.25 TABLET PO ×3 (09:29→14:29)
--- NOTE | 2024-01-29 17:31 | P.OBPN_ITS ---
Subjective Date Seen: 01/29/24 Narrative: Angela is a at 37w4d today here for IOL for non-reactive surveillance. She received cervidil during the night that was removed after 12 hours at 0215 this morning. She was on pitocin briefly with no increase in contractions. She then opted for cytotec. She has received [] doses and is now desiring a cook catheter with very little cervical change made throughout the day. She is coping well, but considering an epidural at some point. The baby's tracing has been category I though periods of decreased variability have been noted that are temporary. She has been eating and drinking through out the day. GBS +, treated adequately and ongoing. Partner and mother supportive at bedside. Objective Exam: Objective: Constitutional: Alert and oriented x3, no distress, coping well Vital signs stable, see nurse documentation Abdomen: gravid, contractions palpate mild with contractions and soft between Cervix: 1 cm/50%/-3 station/vertex NST: 145 bpm/moderate variability/accelerations present/no decelerations/contractions irregular q 2-6min Vital Signs: Last Vital Signs Temp 98.4 F 01/29/24 16:27 Pulse 76 01/29/24 16:27 Resp 18 01/29/24 16:27 BP 97/52 L 01/29/24 16:27 Pulse Ox 97 01/29/24 03:03 Contractions Monitor mode: Palpation Contraction pattern: Irregular Contraction intensity: Mild Assessment Status: Category l Plan Plan: ASSESSMENT:?? 28 at 37w4d weeks gestation?? complicated by:?elevated BMI, surveillance prenatally non- reactive? Labor type: Induced labor?, not yet active or ripe Category 1 FHR pattern.??? Labor complicated by: IOL, GBS+, adequately treated? PLAN:?? 1. Routine intrapartum cares as ordered. Continue with IOL, Cook catheter placed via sterile procedure with 80cc uterine balloon and 60 cc vaginal balloon. 2. Monitoring per policy, continuous? 3. Planning unmedicated . Desires water if able. Consent signed. Hep C negative. Candidate for analgesia of choice.??? 4. Patient encouraged to reposition and ambulate to promote physiologic labor and .?? 5. GBS prophylaxis to be continued 6. Anticipate ?
[2024-01-29] MEDS: CALCIUM CARBONATE 500 MG CHEW PO (22:40)
[2024-01-29 22:56] LABS: Rapid Plasma Reagin (RPR) Non Reactive (Non Reactive)
[2024-01-30] VITALS (24 sets, daily range): BP systolic 93–129; BP diastolic 50–75; PULSE 64–171; RESP 16–19; TEMP 36.4–36.7; O2SAT 80–99
[2024-01-30] MEDS: AMPICILLIN 1 GM in 0.9 % SODIUM CHLORIDE Mini-bag 100 ML IVPB ×2 (02:22→06:39)
--- NOTE | 2024-01-30 07:20 | P.OBPN_ITS ---
Subjective Date Seen: 01/30/24 Narrative: Angela is a at 37w4d today here for IOL for non-reactive surveillance. She received cervidil during Wednesday night that was removed after 12 hours at 0215. She was then on pitocin briefly with no increase in contractions. She then opted for cytotec orrally Wednesday during the day. A cook catheter was later placed per her wished. That fell out at around 0430 this morning and pitocin was started. Things have been ramping up since. She is coping wellwith support. The baby's tracing has been category I though periods of decreased variability have been noted that are temporary. She has continued eating and drinking. GBS +, treated adequately and ongoing. Partner supportive at bedside. She isno longer desiring waterbirth, though it was offered to her. She is now complaining of pressure and desired AROM. Objective Exam: Objective: Constitutional: Alert and oriented x3, mild distress, coping well Vital signs stable, see nurse documentation Abdomen: gravid, contractions palpate moderate to strong with contractions and soft between Cervix: 5 cm/90%/-1 station/vertex, sutures palpated, AROM small amount of bloody fluid NST: 140 bpm/moderate variability/accelerations present/no decel erations/contractions q 2-3 minutes x 60-90 sec Vital Signs: Last Vital Signs Temp 97.9 F 01/30/24 07:19 Pulse 82 01/30/24 04:33 Resp 18 01/29/24 19:04 BP 122/56 L 01/30/24 04:33 Pulse Ox 98 01/30/24 04:32 Contractions Monitor mode: Palpation Contraction pattern: Irregular Contraction intensity: Mild Assessment Status: Category l Plan Plan: ASSESSMENT:?? 29 at 37w4d weeks gestation?? complicated by:?elevated BMI, surveillance prenatally non- reactive? Labor type: Induced labor?, active labor Category 1 FHR pattern.??? Labor complicated by: IOL, GBS+, adequately treated? PLAN:?? 1. Routine intrapartum cares as ordered. Continue with IOL, Pitocin augmentation to continue. Rapid progression appearing to kick in. Prep for . 2. Monitoring per policy, continuous? 3. Planning unmedicated . Desires water if able. Consent signed. Hep C negative. Candidate for analgesia of choice.??? 4. Patient encouraged to reposition and ambulate to promote physiologic labor and .?Positioning per patient preference? 5. GBS prophylaxis to be continued 6. Anticipate ?
--- NOTE | 2024-01-30 08:25 | W.PM.OBVAGDE ---
OB Procedure Vag Delivery Mother Details Mother Details: The patient is a 28 year-old, 2, Para 1, admitted on 01/28/24 at 37w5 Days gestation. Admission Date: 01/28/24 Additional Details Amniotic Membrane Status: AROM Amniotic Membrane Rupture Date: 01/30/24 Amniotic Membrane Rupture Time: 07:11 (small amount) Amniotic Membrane Fluid Description: Bloody Analgesia/Anesthesia Type: None Waterbirth: Yes Pitcoin: Yes Intrapartal Events: Labor Induction Induction Method: Intracervical balloon catheter, Cervidil, per misoprostol protocol and per pitocin protocol Delivery augmentation: rupture of membranes Labor Onset: 04:30 Complete: 07:34 (assumed with spontaneous intermittent) Pushin:45 (consistent) Heart: heart tones during second stage were cat I initially. with transfer from [place] to [facility], heart tones not heard, but baby birthed within a couple minutes. Delivery Details Delivery Date: 01/30/24 Delivery Time: 07:50 Route of delivery: Gender: Female Viability: Alive; Heart Rate Present Position at Delivery: OA Delivery Details: Patient was admitted for IOL for non reactive surveillance and progressed finally once active labor could be started and cervix was ripe. AROM per patient request at 0711 with clear fluid. Patient was assumed complete at 0734 with spontaneous intermittent pushing. She had originally decided she didn't want an epidural, but then changed her mind. The team rushed in to get her there and did so almost immediately before baby came out. Strong consistent push on entering tub. of a viable female at 0750 in [employer] in the tub. Vertex delivered OA. No nuchal cord or shoulder. Body delivered easily and without incident. passed to mothers abdomen and stimulated with a vigorous cry near 30 sec kole. Mouth and nose were bulb suctioned. Cord was clamped and cut at > 5 minutes. APGARS were 8 at one minute and 9 at five minutes respectively. Intact placenta with a 3 vessel cord delivered spontaneously at 0804. Fundus firm. Intact perineum. QBL 300 cc. Mother and baby stable; mother plans to breastfeed. Infant weight pending.? 1 Minute Interval Total Score: 8 5 Minute Interval Total Score: 9 Additional Details Shoulder Dystocia: No Placenta Delivery Time: 08:04 Placental Delivery Description: Spontaneous Procedure Done: Global Blood Loss: 300 Laceration: None Episiotomy Description: None Blood Loss Measurement Type: EBL (300) Bakri Used: No Sponge/Need Count Correct: Yes Cord Vessel Description: 3 Vessels, Clamped/Cut and Around Body Event Summary Status: Mother and infant were stable after delivery. Angela joked through out experience that it took so long and so many different meds to try to get her in labor that she has termed this experience as a slow-cooker stew. :) Disposition: floor
[2024-01-30] MEDS: ACETAMINOPHEN 500 MG TABLET 1000 MG PO (23:05)
[2024-01-31] MEDS: IBUPROFEN 600 MG TABLET PO (02:28)
[2024-01-31 02:30] VITALS: BP 96/67; PULSE 70; RESP 18; TEMP 36.6; O2SAT 97
[2024-01-31 06:50] LABS: Hemoglobin* 12.1 gm/dL (12.0-16.0)
[2024-01-31 07:39] VITALS: BP 104/72; PULSE 82; RESP 16; TEMP 36.4; O2SAT 96
--- NOTE | 2024-01-31 07:54 | P.DS_ITS ---
DS: Providers Provider Date Seen: 01/31/24 Date of admission: 01/28/24 11:17 Primary care physician: Not a Local Provider Admitting Clinician: Juliet Gilliland CNM Consults: 01/28/24 12:14 Consult to Ccna [CONS] Routine Comment: Reason for Consult:: Substance Abuse Screening 01/29/24 10:30 Consult to Physician [CONS] Routine Comment: Consulting Provider: Sandee Way Has provider been notified: Yes Attending Physician on discharge: Mary Kay Pettit CNM Date of Discharge: 01/31/24 DS: Diagnosis Discharge Diagnosis (1) care and examination immediately after delivery: Status: Acute (2) Lactating mother: Status: Acute Exam Narrative: Exam Narrative: VSS, afebrile GENERAL APPEARANCE: ?normal affect, alert, no distress MOOD: ?appropriate HEENT: normocephalic, neck supple, full ROM CHEST: ?Symmetrical chest wall movement. ?Normal respiratory effort. ?Clear to auscultation HEART: ?regular rate and rhythm ABDOMEN: ?soft, non-tender. Uterine fundus is firm, at Umbilicus, Midline and is appropriate for the stage of recovery. ?Bowel sounds present. PERINEUM: ?mild edema of the perineum, intact. EXTREMITIES: ?normal and no edema Const: Vital Signs, click to edit/add: Vital Signs - 24 hr 01/30/24 08:05 01/30/24 08:06 01/30/24 08:06 Temperature 97.7 F Pulse Rate 171 H Pulse Rate [Pulse Oximeter] Respiratory Rate 18 Blood Pressure 119/64 Blood Pressure [Le ft Arm] Pulse Oximetry 99 Oxygen Delivery Me thod 01/30/24 08:10 01/30/24 08:31 01/30/24 08:31 Temperature 98.0 F Pulse Rate 80 Pulse Rate [Pulse Oximeter] Respiratory Rate 17 Blood Pressure 116/64 Blood Pressure [Le ft Arm] Pulse Oximetry 98 Oxygen Delivery Me thod 01/30/24 08:37 01/30/24 08:37 01/30/24 08:52 Temperature 97.8 F Pulse Rate 76 91 Pulse Rate [Pulse Oximeter] Respiratory Rate 18 Blood Pressure 116/59 L 116/58 L Blood Pressure [Le ft Arm] Pulse Oximetry Oxygen Delivery Me thod 01/30/24 08:52 01/30/24 09:07 01/30/24 09:07 Temperature 97.6 F 97.9 F Pulse Rate 71 Pulse Rate [Pulse Oximeter] Respiratory Rate 19 17 Blood Pressure 113/56 L Blood Pressure [Le ft Arm] Pulse Oximetry Oxygen Delivery Me thod 01/30/24 09:22 01/30/24 09:22 01/30/24 09:37 Temperature 98.0 F Pulse Rate 71 77 Pulse Rate [Pulse Oximeter] Respiratory Rate 18 Blood Pressure 105/59 L 108/63 Blood Pressure [Le ft Arm] Pulse Oximetry Oxygen Delivery Me thod 01/30/24 09:37 01/30/24 09:52 01/30/24 09:52 Temperature 98.1 F 97.8 F Pulse Rate 74 Pulse Rate [Pulse Oximeter] Respiratory Rate 18 17 Blood Pressure 105/62 Blood Pressure [Le ft Arm] Pulse Oximetry Oxygen Delivery Me thod 01/30/24 10:09 01/30/24 10:09 01/30/24 12:06 Temperature 97.9 F 97.6 F Pulse Rate 81 Pulse Rate [Pulse Oximeter] 102 H Respiratory Rate 19 18 Blood Pressure 103/55 L Blood Pressure [Le ft Arm] 94/70 Pulse Oximetry 96 Oxygen Delivery Me thod Room Air 01/30/24 15:56 01/30/24 20:12 01/30/24 23:20 Temperature 98.1 F 97.7 F 97.9 F Pulse Rate Pulse Rate [Pulse Oximeter] 75 76 96 Respiratory Rate 17 16 16 Blood Pressure Blood Pressure [Le ft Arm] 105/71 106/75 93/64 Pulse Oximetry 96 97 96 Oxygen Delivery Me od Room Air Room Air Room Air 01/31/24 02:30 01/31/24 07:39 Temperature 97.8 F 97.5 F L Pulse Rate Pulse Rate [Pulse Oximeter] 70 82 Respiratory Rate 18 16 Blood Pressure Blood Pressure [Le ft Arm] 96/67 104/72 Pulse Oximetry 97 96 Oxygen Delivery Me thod Room Air Room Air Documenting provider has reviewed patient's vital signs: yes OB - DS: Summary Hospital Course Hospital Course: Stephanie is a 28 y.o. who was admitted to [facility] for induction of labor. ?She had an uncomplicated NVD.?The patient feels well. ?The pain is well controlled with current medications. ?She has no new complaints. ?She is breast feeding and reports things are going well.? the patient has done well.? Vitals have been stable.? She has remained afebrile.? Has a good appetite, is tolerating a general diet. ?She is voiding without difficulty.? She is passing gas and has not had a bowel movement.? She is ambulating and denies any dizziness.? Has Small amount of rubra lochia. ?She is undecided on what she is planning for prevention. Peripartum Data delivery method: Vaginal Laceration description: None Infant Gender: Female Discharge Plan: Home Status at Discharge Functional status at discharge: independent ambulation Overall status at discharge: patient is progressing back to baseline Time Spent with Patient Time attestation: Total time spent providing and/or coordinating discharge services: Time spent: Less than 30 minutes Discharge Plan Discharge Disposition: Home, Self-Care Date of Admission: 01/28/24 11:17 Attending Provider on Discharge: Mary Kay Pettit Consulting Providers: Sandee Way Primary Care Provider: Provider,Not a Local Condition: Stable Anticipated Discharge Date/Time: 01/31/24 12:00 Discharge Medications: New acetaminophen 500 mg Tablet 1,000 mg PO Q6H PRNQty: 0 0RF docusate sodium 100 mg Capsule 100 mg PO DAILY Qty: 90 2RF ibuprofen 600 mg Tablet 600 mg PO Q6H PRNQty: 60 0RF Continued ascorbic acid (vitamin C) 500 mg capsule 500 mg PO DAILY Discharge Orders: Discharge Order (Routine); Ordered 01/31/24 Ordered By: Mary Kay Pettit Patient Education: OB Over the Counter Medication Information, OB Vaginal/Breast Feeding Additional Instructions: Discharge instructions were reviewed with the patient including signs and symptoms of infection and home going medications Nothing vaginally for 6 weeks: no tampons or intercourse Do not drive while taking narcotic pain medication(s) Off Work or School for 8 weeks Symptoms to report to doctor: * Bleeding that saturates more than one pad per hour * Passing clots larger than the size of a golf ball * Pain not relieved by prescribed medication * Fever above 100.4 degrees Fahrenheit * A foul vaginal odor * Difficulty in emotions, mood, and functions * Thoughts of hurting yourself and/or * Painful, reddened area in your breast * Any drainage, redness, or tenderness in your IV/epidural site * Severe headache that doesn't improve after taking medications * Changes in vision, including temporary loss of vision, blurred vision, and/or light sensitivity * Upper abdominal pain (usually under ribs on the right side) * Decrease in urination or painful, frequent urinating * Chest pain * Shortness of breath * Tenderness or pain with redness and/swelling in the calf(s) of your leg 2-week visit: discuss feeding concerns, review control options and screen for anxiety/depression. 6-week visit for an annual exam. consultation services are available to all mothers and babies for the first year after delivery.? To make an appointment, please call [phone]. Activity Level: Activity as Tolerated Discharge Diet: Regular Follow Up Appointments: [facility] [Provider Group] Forms: Estechth Info Instructions
== END 2024-01-31 11:57 | disposition home or self-care (01) | DRG 560 ==
LOC: OB OUT 11:18 → OB 11:18
PROVIDERS: Midwife; Admitting Provider Advanced Practice Midwife; Visit Provider Advanced Practice Midwife
DX: O76 Abnormality in fetal heart rate and rhythm complicating labor and delivery (principal); O99.214 Obesity complicating childbirth; O99.824 Streptococcus B carrier state complicating childbirth; O99.344 Other mental disorders complicating childbirth; F41.9 Anxiety disorder, unspecified; F32.A Depression, unspecified; O99.324 Drug use complicating childbirth; F12.11 Cannabis abuse, in remission; Z3A.37 37 weeks gestation of pregnancy; Z37.0 Single live birth
CPT/HCPCS: 36415; 59200; 76819; 80306; 85018; 85025; 86592; 86850; 86900; 86901; A9270; C1726; J0290; J7120

== ENCOUNTER 2024-03-13 16:05 | Outpatient (CLI) | payer OTHER, SELFPAY ==
[2024-03-15 18:07] LABS: HPV Source Cervical; HPV, High Risk by TMA Not Detected
== END 2024-03-13 16:06 | disposition home or self-care (01) ==
PROVIDERS: Visit Provider Midwife
DX: Z12.4 Encounter for screening for malignant neoplasm of cervix (principal)
CPT/HCPCS: 87624; 87625; 88141; 88142

== ENCOUNTER 2024-09-29 10:08 | Emergency (ER) | payer OTHER, SELFPAY ==
--- OUTSIDE RECORDS SUMMARY | 2024-09-29 10:10 | XMS_ITS | Encounter Summary ---
Author Organization [place] Address [address] [place] [address] Care Team Providers Care Sole Inker Name Role Phone Houser Marilyn Veronica KELLER Unavailable [phone] No Ref-Primary, Physician Primary Care Provider Donna Garcia ARCHITECTURE INTERN COMPUTED TOMOGRAPHY TECHNICIAN Unavailable [phone] Gurmeet Garcia CNM Unavailable [phone] Reason for Referral * Diagnostic Imaging Ultrasound - Closed Specialty Diagnoses / Procedures Referred By Contac t Referred To Contact Diagnoses related condition, antepartum Procedures [facility] Gurmeet Garcia CNM [address] [place] [address] Phone: tel: fax: Referral ID Status Reason Start Date Expiration Date Visits Re quested Visits Authorized [id number] Closed 04/14/2018 04/14/2019 1 1 HAND TOOL Encounter Details Date Type Department Care Team (Latest Contact Info) Description 04/14/2018 Transcribe Orders [facility] [place] [address] [place] [address] Gurmeet Garcia CNM [address] [place] [address] related condition, antepartum (Primary Dx) Social History Tobacco Use Types Packs/Day Years Used Date Smoking Tobacco: Never Smokeless Tobacco: Never Alcohol Use Standard Drinks/Week Comments Yes 0 (1 standard drink = 0.6 oz pur e alcohol) stopped in AUDIT-C Answer Date Recorded Frequency of Alcohol Consumption Monthly or less 03/16/2018 Average Number of Drinks 1 or 2 019 Frequency of Binge Drinking Never 04/2018 [facility] - Occupational Stress Questionnaire Answer Date Recorded Feeling of Stress Rather much 03/16/2018 Exercise Vital Sign Answer Date Recorde d Days of Exercise per Week 2 days 2018 Minutes of Exercise per Session 20 min 03/16/2018 Comments Yes Sex and Gender Information Value Date Recorded Sex Assigned at Not on file Legal Sex Female 9:00 PM LAP HAND TOOL Gender Identity Not on file Sexual Orientation Not on file documented as of this encounter Plan of Treatment Not on file documented as of this encounter Results * [facility] Comprehensive Single (06/07/2018 12:03 PM CDT) Anatomical Region Laterality Modality Ultrasound 06/07/2018 11:0 2 AM CDT Impressions 06/07/2018 12:17 PM CDT IMPRESSION ----- 1) Intrauterine at 19+3 weeks gestational age. 2) None of the anomalies commonly detected by ultrasound were evident in the detailed anatomic survey described above. Suboptimal cardiac views. 3) Growth parameters and estimated weight were consistent with an appropriate for gestation age pattern of growth. 4) The amniotic fluid volume appeared normal. Narrative 06/07/2018 12:17 PM CDT Comprehensive ----- Pat. Name: STEPHANIE COLON Study Date: 06/07/2018 11:02am Pat. NO: [id number] Referring MD: GURMEET GOLDEN Site: [facility] Astrophysics Professor: Chiquita Aguilar RDMS : 1995 Age: 22 ----- INDICATION ----- Survey METHOD ----- Transabdominal ultrasound examination. View: Sufficient ----- [place] . Number of fetuses: 1 DATING ----- Date Details Gest. age MATA LMP 01/14/2018 20 w + 4 d 10/21/2018 Prior assessment 03/16/2018 GA: 7 w + 4 d 19 w + 3 d 10/29/2018 U/S 06/07/2018 based upon AC, BPD, Femur, HC 19 w + 6 d 10/26/2018 Assigned dating Dating performed on 06/07/2018, based on the prior assessment (on 03/16/2018) 19 w + 3 d 10/29/2018 GENERAL EVALUATION ----- Cardiac activity present. FHR 153 bpm. movements present. Presentation cephalic. Placenta Placental site: anterior, no previa. Umbilical cord 3 vessel cord. Amniotic fluid Amount of AF: normal. MVP 4.1 cm. BIOMETRY ----- Main Biometry: BPD 45.9 mm 19w 6d Hadlock OFD 61.7 mm 19w 6d Nicolaides HC 171.3 mm 19w 5d Hadlock Cerebellum tr 20.3 mm 19w 2d Nicolaides AC 142.4 mm 19w 4d Hadlock Femur 32.7 mm 20w 1d Hadlock Humerus 30.1 mm 19w 6d Pat Weight Calculation: EFW 318 g EFW (lb,oz) 0 lb 11 oz EFW by Hadlock ([id number]) Head / Face / Neck Biometry: Station Tender 7.3 mm CM 5.4 mm Nasal bone 7.2 mm Nuchal fold 4.8 mm ANATOMY ----- The following structures appear normal: Head / Neck Cranium. Head size. Head shape. Lateral ventricles. Choroid plexus. Midline falx. Cavum septi pellucidi. Cerebellum. Cisterna magna. Parenchyma. Thalami. Vermis. Neck. Nuchal fold. Face Lips. Profile. Nose. Maxilla. Mandible. Orbits. Lens. Heart / Thorax Situs. Aortic arch view. Bicaval view. Superior vena cava. Inferior vena cava. 3-vessel view. 8-[id number]-lloqqlw view. Cardiac position. Cardiac size. Cardiac rhythm. Right lung. Left lung. Diaphragm. Abdomen Abdominal wall. Cord insertion. Stomach. Kidneys. Bladder. Liver. Bowel. Genitals. Spine Cervical spine. Thoracic spine. Lumbar spine. Sacral spine. Extremities / Skeleton Right hand. Left hand. Right foot. Left foot. The following structures could not be adequately visualized: Heart / Thorax 4-chamber view. RVOT view. LVOT view. Ductal arch view. MATERNAL STRUCTURES ----- Cervix Visualized Appearance: Appears Closed Cervical length 31.8 mm Right Ovary Visualized Left Ovary Visualized RECOMMENDATION ----- We discussed the findings on today's ultrasound with the patient. A repeat ultrasound has been scheduled in 3 weeks to reevaluate suboptimal cardiac views. Return to primary provider for continued care.. Thank-you for the opportunity to participate in the care of this patient. If you have questions regarding today's evaluation or if we can be of further service, please contact the [facility]. anomalies may be present but not detected Procedure Note Nicky Roberson, - 06/07/2018 Comprehensive ----- Pat. Name:ANTIONETTE COLONARABELLAtsloan Date:06/07/2018 11:02am Pat. NO: [id number] MD:GURMEET GOLDEN [facility]Chiquita AguilarAGA :1995Age:22 ----- INDICATION ----- Survey METHOD ----- Transabdominal ultrasound examination. View: Sufficient ----- [place] . Number of fetuses: 1 DATING ----- DateDetailsGest. age MATA LMP 01/14/201820 w + 4 d 10/21/2018 Prior assessment 03/16/2018 GA: 7 w +4 d19 w + 3 d 10/29/2018 U/S 06/07/2018based upon AC, BPD, Femur, HC19 w + 6 d 10/26/2018 Assigned dating Dating performed on 06/07/2018, based onthe prior assessment (on 03/16/2018) 19 w + 3 10/29/2018 GENERAL EVALUATION ----- Cardiac activity present. FHR 153 bpm. movements present. Presentation cephalic. Placenta Placental site: anterior, no previa. Umbilical cord 3 vessel cord. Amniotic fluid Amount of AF: normal. MVP 4.1 cm. BIOMETRY ----- Main Biometry: BPD 45.9 mm19w 6d Hadlock OFD 61.7 mm19w 6d Nicolaides HC 171.3 mm19w 5d Hadlock Cerebellum tr 20.3 mm19w 2d Nicolaides AC 142.4 mm19w 4d Hadlock Femur 32.7 mm20w 1d Hadlock Humerus 30.1 mm19w 6d Pat Weight Calculation: EFW 318 g EFW (lb,oz) 0 lb 11 oz EFW by [place] ([id number]) Head / Face / Neck Biometry: Station Tender 7.3 mm CM 5.4 mm Nasal bone 7.2 mm Nuchal fold 4.8 mm ANATOMY ----- The following structures appear normal: Head / Neck Cranium. Head size. Head shape.Lateral ventricles. Choroid plexus. Midline falx. Cavum septi pellucidi.Cerebellum. Cisterna magna. Parenchyma. Thalami. Vermis. Neck. Nuchal fold. Face Lips. Profile. Nose. Maxilla.Mandible. Orbits. Lens. Heart / Thorax Situs. Aortic arch view. Bicaval view.Superior vena cava. Inferior vena cava. 3-vessel view. [id number]-tdpyxcaxbwq. Cardiac position. Cardiac size. Cardiac rhythm. Right lung. Left lung.Diaphragm. Abdomen Abdominal wall. Cord insertion.Stomach. Kidneys. Bladder. Liver. Bowel. Genitals. Spine Cervical spine. Thoracic spine.Lumbar spine. Sacral spine. Extremities / Skeleton Right hand. Left hand. Right foot. Leftfoot. The following structures could not be adequately visualized: Heart / Thorax 4-chamber view. RVOT view. LVOT view.Ductal arch view. MATERNAL STRUCTURES ----- Cervix Visualized Appearance: Appears Closed Cervical length 31.8 mm Right Ovary Visualized Left Ovary Visualized RECOMMENDATION ----- We discussed the findings on today's ultrasound with the patient. A repeat ultrasound has been scheduled in 3 weeks to reevaluate suboptimalcardiac views. Return to primary provider for continued care.. Thank-you for the opportunity to participate in the care of this patient.If you have questions regarding today's evaluation or if we can be offurther service, please contact the [facility]. anomalies may be present but not detected IMPRESSION ----- 1) Intrauterine at 19+3 weeks gestational age. 2) None of the anomalies commonly detected by ultrasound were evident inthe detailed anatomic survey described above. Suboptimal cardiacviews. 3) Growth parameters and estimated weight were consistent with anappropriate for gestation age pattern of growth. 4) The amniotic fluid volume appeared normal. [facility] ORDERABLE S Edited Result - Final documented in this encounter Visit Diagnoses Diagnosis related condition, antepartum- Primary related condition, antepartum documented in this encounter Additional Health Concerns Assessment Noted Time PHQ-9 Depression Total Score: 3 04/14/19 19 3:21 PM LAP HAND TOOL documented as of this encounter Care Teams Sole Inker Relationship Specialty Start Date End Date No Ref-Primary, Physician PCP - General 08/18/18 Marilyn Houser CNM [address] [place] [address] Biomedical Manager Midwives 08/17/18 Donna Garcia APRN COMPUTED TOMOGRAPHY TECHNICIAN [address] [place] [address] Assigned PCP 10/20/18 11/21/21 Gurmeet Garcia CNM [address] [place], [place] [id number] Assigned OBGYN Provider 01/05/20 documented as of this encounter
--- OUTSIDE RECORDS SUMMARY | 2024-09-29 10:10 | XMS_ITS | Clinical Summary ---
Author Organization [facility] Address [address] [place] [address] Care Team Providers Care Glue Plant Operator Name Role Phone Pcp, No Primary Care Provider Unavailabl e Allergies No known active allergies Medications norethindrone-et hinyl estradiol (MICROGESTIN 04/03) 1-20 mg-mcg tabletIndication s:Irregular menses Take 1 tablet by mouth once daily. 3 Package 4 01/12/2013 Active Active Problems No known active problems Social History Tobacco Use Types Packs/Day Years Used Date Smoking Tobacco: Never Smokeless Tobacco: Never Alcohol Use Standard Drinks/Week Comments No 0 (1 standard drink = 0.6 oz pur e alcohol) Social Connections Answer Date Recorded Frequency of Communication with Friends and Fami ly Not on file 05/30/2021 Comments No Sex and Gender Information Value Date Recorded Sex Assigned at Not on file Legal Sex Female 9:15 PM CDT Gender Identity Not on file Sexual Orientation Not on file Obstetrics History Para Term AB IAB SAB Ectopic Multiple Livin g Live Births 0 0 0 0 0 0 0 0 0 0 Last Filed Vital Signs Vital Sign Reading Time Taken Comments Blood Pressure 102/82 01/12/2013 2:36 PM CDT Pulse 74 01/12/2013 2:36 PM CDT Temperature - - Respiratory Rate 16 01/12/2013 2:36 PM CDT Oxygen Saturation - - Inhaled Oxygen Concentration - - Weight 83.7 kg (184 lb 9.6 oz) 01/12/2013 2:34 P M CDT Height 152 cm (4' 11.84) 01/12/2013 2:34 PM CDT Body Mass Index 36.24 01/12/2013 2:34 PM CDT Plan of Treatment Health Maintenance Due Date Last Done Comments Tetanus booster 2005 Depression screening for age 12+ 2006 HIV for age 15-65 2009 BMI (ht and wt on same day) for age 18+ 2012 Hepatitis C screening for ag e 18-79 2012 Hepatitis B series for 19+ ( 1 of 3 - 19+ 3-dose series) 2013 Pap test for age 21-65 03/26/2020 03/26/2017 COVID-19 vaccine series (1 - 2023- season) 2023 Influenza Vaccine (#1) 2024 Pneumococcal series for age 6-49 Aged Out No longer eligible based on patient's age to complete this topic Procedures Procedure Name Priority Date/Time Associated Diagnosis Comments AXLE INSPECTOR THIN PREP PAP SCREEN IMAGED Routine 03/26/2017 9:46 AM SHIP RUNNER from Last 3 Months or Most Recently Relevant to Health Maintenance Results * AXLE INSPECTOR THIN PREP PAP SCREEN IMAGED (03/26/2017 9:46 AM SHIP RUNNER) Case Report Gynecologic Cytology Report Case: [id number] Authorizing Provider: Marlena Lara NP Collected: 03/26/2017945 First Screen: Haydee Rivera Received: 03/29/2017945 Specimen: AXLE INSPECTOR ThinPrep Vial Screening, Cervical/Vaginal 04/01/2017 3:02 PM SHIP [facility]NER [facility] INTERPRETATION/ RESULT NEGATIVE FOR INTRAEPITHELIAL LESION OR MALIGNANCY (NIL) (none) 04/01/2017 3:02 PM SHIP RUNNER [facility] at 1502 SHIP RUNNER SPECIMEN ADEQUACY Satisfactory for evaluation Endocervical component present 04/01/2017 3:02 PM SHIP [facility]NER [facility] HPV REQUEST HPV if ASCUS 04/01/2017 3:02 PM SHIP RUNNER [employer] [facility] Date of LMP 03/16/2017 04/01/2017 3:02 PM SHIP [facility]NER [facility] Automated Review Successful 04/01/2017 3:02 PM SHIP RUNNER [facility] Comment:Specimen processed s uccessfully by automated analytical technician device, ThinPrep Imaging System, [employer] Note The pap test is a screening technique, not a diagnostic procedure. It is used primarily to screen for squamous cancers and precursor lesions. Published studies have shown that it is subject to both false negative and false positive results. The pap test should not be used as the sole means to diagnose or exclude pre-malignant and malignant lesions. Interpreted at [facility] (Central Lab, [facility], , [facility], [facility], [facility], [facility]) 04/01/2017 3:02 PM SHIP RUNNER [facility] Other (Cervical/Vagina l) 03/26/2017 9:46 AM SHIP RUNNER 03/29/2017 9:46 AM SHIP RUNNER us Marlena Lara NP PATHOLOGY/CYTOLOGY Final Re sult [facility] [address] [place] [address], from Last 3 Months or Most Recently Relevant to Health Maintenance Insurance Care Teams Glue Plant Operator Relationship Specialty Start Date End Date Pcp, No . PCP - General 02/15/13
--- OUTSIDE RECORDS SUMMARY | 2024-09-29 10:10 | XMS_ITS | Clinical Summary ---
Author Organization [facility] Address [address] [place] [id number] Care Team Providers Care Acid Bath Mixer Name Role Phone Marilyn Houser I CNM Unavailable [phone] No Ref-Primary, Physician Primary Care Provider Allergies No known active allergies Medications etonogestrel (NEXPLANON) 68 MG IMPLIndications:In sertion of implantable subdermal contraceptive 1 each (68 mg) by Subdermal route once Active Active Problems Problem Noted Date Diagnosed Date Morbid obesity 01/15/2020 Well woman exam 01/15/2020 Anxiety 01/15/2020 BMI 40.0-44.9, adult 01/15/2020 (normal spontaneous vaginal delivery) 10/31 Nonimmune to hepatitis B virus, #1 08/09/18, #2 09/28/2018 Overview (09/28/2018): 08/09/18 #1 09/28/2018 - #2 Vitamin D deficiency 03/17/2018 Overview (03/17/2018): 03/16/18- vit D 12- needs supplement___ PCOS (polycystic ovarian syndrome) 03/16/2018 HRP (high risk ) [facility] CNM 03/16/2018 Overview (10/05/2018): Strong family history of Diabetes. 03/16/18- US- 7 4/7wks, EDC 10/29/18, rt ovarian simple cyst. 04/14/18: early 1 hour glucose done. mfm referral for level 2 ultrasound placed 09/28/18- ordered growth us for FH > dates 10/05/2018: EFW 54%tile, 6lb 9oz Resolved Problems Problem Noted Date Diagnosed Date Resolved Date Labor and delivery, indication for care 10/30/2018 12/13/2018 Group B Streptococcus urinar y tract infection affecting in first trimester 03/20/2018 1 Overview (04/16/2018): 03/20/2018 - >10,000. Amoxcoillin sent. Needs repeat urine culture at least 7 days after finishing ABX. No rescreen later in , treat PCN in labor 04/14/18: has completed treatment, reviewed pcn in labor. Repeat UC today BMI 37.0-37.9, adult 03/16/2018 020 Overview (03/16/2018): Discussed early 1hr Immunizations Immunization Administration Dates Next Due DTAP (<7y) 11/19/1999 DTP-Hib 11/17/1995, 5,1994,10/27 HPV Quadrivalent 08/16/2013,03/23/2012 HPV9 (Gardasil) 10/01/2015 Hepatitis B, Adult (Energix-B/Recombivax HB) 09/28/2018,08/09/2018 Hepatitis B, Peds (Engerix-B/Recombivax HB) 11/17/1995,1994,1994 Influenza (IIV3) PF 03/23/2012 MMR (MMRII) 11/19/1999,11/17/1995 Meningococcal ACWY (Menactra ) 03/23/2012 OPV, trivalent, live 02/25/1995,1994,10/27 Poliovirus, inactivated (IPV) 11/19/1999 TDAP Vaccine (Boostrix) 08/09/2018,10/01/2015 Td (Adult), Adsorbed 04/13/2006 Varicella (Varivax) 11/11/2006,11/22/2000 Family History Medical History Relation Comments Diabetes Father Hyperlipidemia Father Hypertension Father Depression Maternal Grandmother Diabetes Maternal Grandmother Hypertension Maternal Grandmother Depression Mother Diabetes Paternal Grandmother Hypertension Paternal Grandmother Relation Status Comments Father Maternal Grandmother Mother Paternal Grandmother Social History Tobacco Use Types Packs/Day Years Used Date Smoking Tobacco: Never Smokeless Tobacco: Never Alcohol Use Standard Drinks/Week Comments Yes 0 (1 standard drink = 0.6 oz pur e alcohol) AUDIT-C Answer Date Recorded Q1: How often do you have a drink containing alc ohol? 2-4 times a month 02/06/2020 Average Number of Drinks Not on file 020 Frequency of Binge Drinking Not on file 01/14 PHQ-2 Answer Date Recorded PHQ-2 Score 0 02/06/2020 [facility] Occupat ional Health - Occupational Stress Questionnaire Answer Date Recorded Feeling of Stress Rather much 03/16/2018 Exercise Vital Sign Answer Date Recorde d Days of Exercise per Week 2 days 2018 Minutes of Exercise per Session 20 min 03/16/2018 [place] Depression Scale Answer Date Recorded [place] Depression Score 0 11/01/2018 Last EPDS Self Harm Result Not on file 11/01 Adolescent Education Answer Date Record ed Getting School Help Needed Not on file 10/04 Comments No Sex and Gender Information Value Date Recorded Sex Assigned at Not on file Legal Sex Female 9:00 PM [facility] Gender Identity Not on file Sexual Orientation Not on file Last Filed Vital Signs Vital Sign Reading Time Taken Comments Blood Pressure 107/76 02/06/2020 9:52 AM [facility] Pulse 103 02/06/2020 9:52 AM [facility] Temperature 36.6 C (97.9 F) 11/01/2018 3:52 PM CDT Respiratory Rate 14 11/01/2018 3:52 PM CDT Oxygen Saturation 100% 10/31/2018 10:44 AM CDT Inhaled Oxygen Concentration - - Weight 93.7 kg (206 lb 8 oz) 02/06/2020 9:52 AM [facility] Height 152.4 cm (5') 02/06/2020 9:52 AM [facility] Body Mass Index 40.33 02/06/2020 9:52 AM [facility] Plan of Treatment Health Maintenance Due Date Last Done Comments ADVANCE CARE PLANNING 1994 ANNUAL REVIEW OF HM ORDERS 1994 HEPATITIS C SCREENING 2012 PAP 01/13/2021 01/13/2018, 03/26/2017 YEARLY PREVENTIVE VISIT 01/14/2021 01/15/2020 COVID-19 VACCINE ( season) 2023 PHQ-2 (once per calendar year) 2024 02/06/2020, 10/05/2018, 10/05/2018, Additional history exists INFLUENZA VACCINE (Season Ended) 2024 03/23/2012 DTAP/TDAP/TD VACCINE (8 - Td or Tdap) 08/09/2028 08/09/2018, 10/01/2015, 04/13/2006, Additional history exists ZOSTER VACCINE (1 of 2) 2044 MENINGITIS VACCINE Completed 03/23/2012 HPV VACCINE Completed 10/01/2015, 06/2013, 03/23/2012 PAP FOLLOW-UP Discontinued 01/13/2018, 03/26/2017 HIV SCREENING Completed 03/16/2018 CHLAMYDIA SCREENING Discontinued 04/14/2018 HEPATITIS B VACCINE Completed 09/28/2018, 08/09/2018, 11/17/1995, Additional history exists PNEUMOCOCCAL VACCINE: PEDIATRICS (0 to 5 YEARS) AND AT-RISK PATIENTS (6 to 49 YEARS) Aged Out No longer eligible based on patient's age to complete this topic Procedures Procedure Name Priority Date/Time Associated Diagnosis Comments CHLAMYDIA TRACHOMATIS PCR Routine 04/14/2018 3:15 PM [facility] HRP (high risk ) [facility] HIV ANTIGEN ANTIBODY COMBO Routine 03/16/2018 2:35 PM [facility] HRP (high risk ), first trimester PAP SCREEN THIN PREP Routine 01/13/2018 12:00 AM CDT from Last 3 Months or Most Recently Relevant to Health Maintenance Results * Chlamydia PCR (Clinic Collect) (04/14/2018 3:15 PM [facility]) Specimen Description Urine 04/14/2018 6:14 PM [facility] Chlamydia Trachomatis PCR Negative NEG^Negat manuela 04/15/2018 12:18 PM [facility] Comment: Negative for C. trachomatis rRNA by cartoon designer mediated amplification. A negative result by cartoon designer mediated amplification does not preclude the presence of C. trachomatis infection because results are dependent on proper and adequate collection, absence of inhibitors, and sufficient rRNA to be detected. Urine specimen (specimen) 04/14/2018 3:15 PM [facility] 04/14/2018 6:14 PM [facility] us Nick Garcia CNM LAB - MICRO GENERAL ORDERABLES Final Result Performing Organization Address [facility] Co de Phone Number [facility] [address] [place] [address], [address] [address] * HIV Antigen Antibody Combo (03/16/2018 2:35 PM [facility]) HIV Antigen Antibody Combo Nonreactive NR^Nonrea ctive 03/16/2018 8:33 PM [facility] Comment:HIV-1 p24 Ag & HIV-1 /HIV-2 Ab Not Detected Blood specimen (specimen) 03/16/2018 2:35 PM [facility] 03/16/2018 2:39 PM [facility] us Jany Hwang RN LAB - BLOOD ORDERABLES Sariah l Result Performing Organization Address [facility] Co de Phone Number [facility] [address] [place] [address] * Pap Screen Thin Prep (01/13/2018 12:00 AM CDT) Cytologic material (specimen) us Patient Reported LAB - OPTIME CLINICAL SPECIMEN Final Result from Last 3 Months or Most Recently Relevant to Health Maintenance Care Teams Acid Bath Mixer Relationship Specialty Start Date End Date No Ref-Primary, Physician PCP - General 08/18/18 Marilyn Houser CNM [address] [place], [place] [address]E [address] [address] Primary Care Coordinator Midwives 08/17/18
[2024-09-29 10:19] VITALS: BP 119/68; PULSE 95; RESP 18; TEMP 36.8; O2SAT 97; BMI 39.1
--- NOTE | 2024-09-29 10:38 | ED_ITS ---
HPI - General Adult General Chief complaint: Unspecified Complaint, Adult Stated complaint: thinks has yest infection on breast Time Seen by Provider: 09/29/24 10:25 History of Present Illness HPI narrative: Patient is a E 29-year-old woman who is breast-feeding. She comes in today with redness minimal and tenderness significant of the right breast in the upper- outer quadrant. She is having no difficulties with producing milk. She has had no fevers no chills no night sweats no cough no shortness of breath. Symptoms started today. Related Data Home Medications ?Medication ?Instructions ?Recorded ?Confirmed levonorgestrel (Mirena) 1 device intrauterine ONCE 1 09/29/24 Previous Rx's ?Medication ?Instructions ?Recorded acetaminophen 500 mg tablet 1,000 mg (2 x 500 mg) PO Q 6H PRN 01/31/24 #0 tabs ibuprofen 600 mg tablet 600 mg PO Q6H PRN #60 tabs 1 04/01/23 Allergies Allergy/AdvReac Type Severity Reaction Status Date / Time No Known Drug Allergies Allergy Verified 09/29/24 10:24 Review of Systems Status of ROS: Reports: 10 or more systems reviewed and unremarkable except as noted in History and below PFSH [facility] Medical History Mild tetrahydrocannabinol (THC) abuse ?F12.10 - Cannabis abuse, uncomplicated (ICD-10) Simple ovarian cyst ?N83.209 - Unspecified ovarian cyst, unspecified side (ICD-10) Obesity (BMI 30-39.9) ?E66.9 - Obesity, unspecified (ICD-10) Anxiety ?F41.9 - Anxiety disorder, unspecified (ICD-10) Depression ?F32.A - Depression, unspecified (ICD-10) Secondary physiologic amenorrhea ?N91.1 - Secondary amenorrhea (ICD-10) Insomnia ?G47.00 - Insomnia, unspecified (ICD-10) History of metrorrhagia ?Z87.42 - Personal history of other diseases of the female genital tract (ICD-10) History of vaginal delivery (10/31/18) History of chlamydia infection (~2014) ?Z86.19 - Personal history of other infectious and parasitic diseases (ICD- 10) Surgical History Forman teeth removed ?K08.409 - Partial loss of teeth, unspecified cause, unspecified class (ICD- 10) Family History Father Substance abuse Diabetes Mother Mental disorder Maternal Grandfather Diabetes Paternal Grandfather Diabetes Grandmother Ovarian cancer Diabetes Sister Diabetes Other High blood pressure Social History Narrative: SOCIAL Education: high school Work: corporate human resources manager at [employer] Partner: Joey - partner Owns [employer] (his first child) Lives with: daughter, plans to move in together with partner in the near future Pets: none Abuse: Denies past/present Special Diet: Denies Ok with a blood transfusion: yes Culture or sikh beliefs: denies RISK FACTORS Exercise Times/wk: encouraged Depression/Anxiety: history of anxiety and depression, not on medications and denies current concerns ANIKET: 3 PHQ 9: 4 Seat Belt Use: Routinely Smoking: Denies present, past vaping Alcohol/day: Denies while Caffeine: occasional soda Drug Use: Denies present, THC occasionally Chicken Pox: immunized MRSA: Denies What is your current living situation?: I presently have a place to live Problems where you live: no known problems In the past 12 months, utilities in danger of being shut off: no In past 12 months, lack of transportation kept you from medical appts, meetings, work, or getting things needed for daily living: no In the past 12 mos, have been you worried that your food would run out before you had money to buy more?: never true In the past 12 mos, the food you bought just didn't last and you didn't have money to buy more?: never true Smoking Status: Former smoker Do you use any of these nicotine containing products: None How often do you have a drink containing alcohol: never AUDIT-C Alcohol total score: 0 Non-prescribed substance use: denies use How often does anyone, including family, friends and others, physically hurt you : never How often does anyone, including family, friends and others, insult or talk down to you: never How often does anyone, including family, friends and others, threaten you with harm: never How often does anyone, including family, friends and others, scream or curse at you: never Exam Narrative: Exam Narrative: EXAM GENERAL: Patient appears comfortable and well. EYES: No scleral icterus. LYMPH: No supraclavicular or cervical lymphadenopathy. SKIN: Visible skin seen during exam normal or with benign process only. EXT: No dependent lower extremity pedal edema. HEART: Regular rate and rhythm with no murmurs, rubs, or gallops. LUNGS: Clear to auscultation bilaterally with no crackles or wheezes. ABD: Soft, non tender, non distended. PSYCH: Good eye contact, speech is not pressured. Breast exam on the right showed no redness or warmth but somewhat firm contour to the upper outer quadrant right breast. Const: Vital Signs, click to edit/add: Vital Signs - 24 hr 09/29/24 10:19 Temperature 98.3 F Pulse Rate [Right Pulse Oximeter] 95 Respiratory Rate 18 Blood Pressure [Ri ght Forearm] 119/68 Pulse Oximetry 97 Oxygen Delivery Me thod Room Air Course Course ED Course: Patient seen examined. Will be treating her for mastitis. Keflex Tylenol warm compresses follow-up with her primary physician as needed. Vital Signs Vital signs: Initial Vital Signs Temperature 98.3 F 09/29/24 10:19 Temperature Source Temporal Artery Scan 09/29/24 10:19 Pulse Rate 95 09/29/24 10:19 Pulse Rhythm Regular 09/29/24 10:19 Pulse Strength 3+ Normal 09/29/24 10:19 Respiratory Rate 18 09/29/24 10:19 Blood Pressure 119/68 09/29/24 10:19 Blood Pressure Mean 85 09/29/24 10:19 Blood Pressure Position Sitting 09/29/24 10:19 Pulse Oximetry 97 09/29/24 10:19 Oxygen Delivery Method Room Air 09/29/24 10:19 Vital Signs Temperature 98.3 F 09/29/24 10:19 Pulse Rate 95 09/29/24 10:19 Respiratory Rate 18 09/29/24 10:19 Blood Pressure 119/68 09/29/24 10:19 Pulse Oximetry 97 09/29/24 10:19 Oxygen Delivery Method Room Air 09/29/24 10:19 Temperature 98.3 F 09/29/24 10:19 Pulse Rate 95 09/29/24 10:19 Respiratory Rate 18 09/29/24 10:19 Blood Pressure 119/68 09/29/24 10:19 Pulse Oximetry 97 09/29/24 10:19 Oxygen Delivery Method Room Air 09/29/24 10:19 Discharge Plan Discharge Clinical Impression: Mastitis Patient Disposition: Home, Self-Care Condition: Stable Instructions: Mastitis (ED) Additional Instructions: Tylenol Keflex as directed Warm compress Follow-up with your doctor as needed. Activity Level: No Restrictions Discharge Diet: Regular Prescriptions: No Action Mirena 21 mcg/24hr (up to 8 yrs) 52 mg intrauterine device 1 device intrauterine ONCE Rx Instructions: as a single dose acetaminophen 500 mg Tablet 1,000 mg PO Q6H PRNQty: 0 0RF ibuprofen 600 mg Tablet 600 mg PO Q6H PRNQty: 60 0RF Follow Up/Referrals: Provider,Not a Local [Primary Care Provider, Family Practice] Stand Alone Forms: MyHealth Info Instructions
== END 2024-09-29 10:51 | disposition home or self-care (01) ==
LOC: ED 10:50
PROVIDERS: Emergency Provider Internal Medicine
DX: N61.0 Mastitis without abscess (principal)
CPT/HCPCS: 99283

== ENCOUNTER 2025-02-02 10:00 | Day surgery (SDC) | payer OTHER, SELFPAY ==
[2025-02-02] VITALS (8 sets, daily range): BP systolic 119–142; BP diastolic 71–99; PULSE 77–104; RESP 16; TEMP 36.9; O2SAT 97–100; BMI 33.3
--- NOTE | 2025-02-02 10:25 | W.PM.H&PU ---
History & Physical Update History & Physical Update H&P Reviewed and patient assessed: No changes noted
--- NOTE | 2025-02-02 10:26 | P.ORPRC_ITS ---
Procedure Note Date of procedure: 02/02/25 Procedure: PREOPERATIVE DIAGNOSIS: 1. Right carpal tunnel syndrome POSTOPERATIVE DIAGNOSIS: 1. Right carpal tunnel syndrome PROCEDURE: 1. Right open carpal tunnel release SURGEON: Todd Alejandro MD. PATIENT ADMITTING REPRESENTATIVE: Sue Berry P.A.-C. An benefits assistant was critical for this case to aid in patient positioning, tissue retraction, limb manipulation/positioning, and closure. ANESTHESIA: Local anesthetic ESTIMATED BLOOD LOSS: 1 mL TOURNIQUET: 11 min at 250 mmHg COMPLICATIONS: None INDICATIONS: The patient is a pleasant 29-year-old female with history of right hand numbness and tingling. Symptoms were not improving with conservative treatment, and patient elected to proceed with surgical intervention consisting of right carpal tunnel release. Prior to surgery, the risks and benefits of the procedure were discussed with patient, all questions were answered, and informed consent was obtained. DESCRIPTION OF PROCEDURE: Patient was seen preoperatively and operative site was marked. The subcutaneous tissues overlying the right carpal tunnel were injected with a combination of 0.5% bupivacaine and 1% lidocaine with epinephrine. Patient was then brought to the operating room and placed in the supine position on the OR table. A tourniquet was placed on the patient's right arm, and right upper extremity was prepped and draped in usual sterile fashion. A surgical time-out was performed confirming patient name, procedure, and location. The operative extremity was then elevated and exsanguinated with an Esmarch, and the tourniquet was inflated to 225 mmHg. A skin incision measuring approximately 3-4 cm was made in line with the ring finger extending from the distal wrist flexion crease to Strickland's cardinal line. Blunt dissection was used to dissect through subcutaneous tissues and palmar fascia. Transverse ca rpal ligament was identified and was sharply incised proximally with care taken to protect the underlying median nerve. The transverse carpal ligament was then sharply divided along its ulnar border using tenotomy scissors and a stockbridge blade with care taken to protect the underlying median nerve. Once the transverse carpal ligament was divided, the antebrachial fascia was released proximally. The wound was then irrigated with normal saline, and the tourniquet was released. Total tourniquet time was less minutes. Hemostasis was achieved with bipolar electrocautery. The skin incision was closed with 4-0 nylon horizontal mattress sutures, and a sterile dressing was applied. Patient was then transferred to the recovery room in stable condition. POSTOPERATIVE PLAN: 1. Patient will be discharged to home day of surgery. 2. Ice and elevation as needed for pain and swelling. 3. Tylenol and/or ibuprofen as needed for pain. Tramadol as needed for breakthrough pain. 4. They were given instructions for wound care and finger range of motion exercises. 5. Return for follow-up evaluation in 10-14 days for wound check and suture removal.
[2025-02-02] MEDS: BUPIVACAINE 0.5% 30 ML INJECTION (10:35)
[2025-02-02] MEDS: ETHYL CHLORIDE 1 APPLICATION 1 APPLIC TOPICAL (10:35)
[2025-02-02] MEDS: BACITRACIN OINTMENT BULK TUBE 1 APPLIC TOPICAL (11:12)
== END 2025-02-02 11:48 | disposition home or self-care (01) ==
PROVIDERS: PCP Internal Medicine; Visit Provider Orthopaedic Surgery
PROC: (CPT 64721; principal; 2025-02-02 11:00)
DX: G56.01 Carpal tunnel syndrome, right upper limb (principal)
CPT/HCPCS: 64721; J0665